=== PATIENT | male | born 1985 | race Two or more races ===

== ENCOUNTER 2017-06-02 15:42 | Inpatient (IN) | payer OTHER ==
[2017-06-02 17:26] VITALS: BMI 22.4
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
[2017-06-02] MEDS ORDERED: MENTHOL/PHENOL 1 EACH UD MM PRN (18:58)
[2017-06-02] MEDS ORDERED: P-EPHED 60MG/TRIPROLIDI 2.5MG TABLET PO PRN (18:58)
[2017-06-02] MEDS ORDERED: MAGNESIUM CITRATE 300 ML BOTTLE PO PRN (18:58)
[2017-06-02] MEDS ORDERED: MAG HYDROX/AL HYDROX/SIMETH 30 ML UNIT-DOSE CUP PO PRN (18:58)
[2017-06-02] MEDS ORDERED: MAGNESIUM HYDROX 2400MG/30ML ORAL SUSPENSION 30 ML CUP PO PRN (18:58)
[2017-06-02] MEDS ORDERED: ACETAMINOPHEN 325 MG TABLET (FP) PO PRN (18:58)
[2017-06-02] MEDS ORDERED: chlordiazePOXIDE HCL 25 MG CAPSULE PO PRN (18:58)
[2017-06-02] MEDS ORDERED: LOPERAMIDE HCL 2 MG CAPSULE PO PRN (18:58)
[2017-06-02] MEDS ORDERED: IBUPROFEN 400 MG TABLET (FP) PO PRN (18:58)
[2017-06-02] MEDS ORDERED: BACLOFEN 10 MG TABLET (FP) PO PRN (19:01)
[2017-06-02] MEDS ORDERED: ONDANSETRON *ODT* 4 MG TABLET SL PRN (19:05)
[2017-06-02] MEDS: RANITIDINE HCL 150 MG TABLET (FP) PO SCH ×2 (19:57→22:27)
[2017-06-02] MEDS: NICOTINE POLACRILEX 4 MG GUM BUC PRN (21:01)
[2017-06-02] MEDS: cloNIDine HCL 0.1 MG TABLET PO PRN (22:26)
[2017-06-02] MEDS: chlordiazePOXIDE HCL 25 MG CAPSULE PO SCH (22:27)
[2017-06-02] MEDS: THIAMINE HCL 100 MG TABLET (FP) PO SCH (22:27)
[2017-06-03 01:48] LABS: URINE APPEARANCE CLEAR; URINE BILIRUBIN NEGATIVE (NEGATIVE); URINE BLOOD NEGATIVE (NEGATIVE); URINE COLOR LTYELLOW; URINE GLUCOSE (UA) NEGATIVE (NEGATIVE); URINE KETONE NEGATIVE (NEGATIVE); URINE NITRITE NEGATIVE (NEGATIVE); URINE PROTEIN NEGATIVE (NEGATIVE); URINE UROBILINOGEN NEGATIVE mg/dL (0.2-1.0)
[2017-06-03] MEDS: chlordiazePOXIDE HCL 25 MG CAPSULE PO SCH ×4 (05:09→22:17)
[2017-06-03] MEDS: guaiFENesin/D-METHORPHAN HB 10 ML UNIT-DOSE CUPS PO PRN (05:10)
--- NOTE | 2017-06-03 09:18 | PN ---
S CIWA - CIWA Score Nausea/Vomitin-No Nausea/No Vomiting Muscle Tremors: 4-Moderate,w/Arms Extend Anxiety: 3 Agitation: 3 Paroxysmal Sweats: 3 Orientation: 0-Oriented Tacttile Disturbances: 0-None Auditory Disturbances: 0-None Visual Disturbances: 0-None Headache: 1-Very Mild CIWA-Ar Total Score: 14 S Progress Note (SOAP) Subjective: agitation anxiety sweats shakes irritable restless Objective: 06/03/17 09:17 Vital Signs Temperature 96.1 F L 06/03/17 06:33 Pulse Rate 83 06/03/17 06:33 Respiratory Rate 18 06/03/17 06:33 Blood Pressure 118/74 06/03/17 06:33 O2 Sat by Pulse Oximetry (%) Laboratory Tests 06/02/17 22:30 Urine Color Ltyellow Urine Appearance Clear Urine pH 6.0 Ur Specific [place] 1.012 Urine Protein Negative Urine Glucose (UA) Negative Urine Ketones Negative Urine Blood Negative Urine Nitrite Negative Urine Bilirubin Negative Urine Urobilinogen Negative labs pending aaox3 ambulating no acute distress Assessment: 06/03/17 09:18 withdrawal sx Plan: continue detox increase fluids f/u pending labs
[2017-06-03 10:02] LABS: MCH 27.7 pg (25.7-33.7); MCHC 32.2 g/dl (32.0-35.9); MEAN CELL VOLUME 85.8 fl (80-96); MEAN PLT VOLUME 10.7 fl (7.5-11.1); PLATELET COUNT 117 K/MM3 (134-434); RDW 14.6 % (11.9-15.9); WHITE BLOOD COUNT 8.9 K/mm3 (4.0-10.0)
[2017-06-03] MEDS: cloNIDine HCL 0.1 MG TABLET PO PRN (10:10)
[2017-06-03] MEDS: PRENATAL VITAMINS W/ FOLIC ACID TABLET (FP) PO SCH (10:10)
[2017-06-03] MEDS: RANITIDINE HCL 150 MG TABLET (FP) PO SCH ×2 (10:10→22:17)
[2017-06-03] MEDS: NICOTINE 21 MG/24 HOURS TOPICAL PATCH TD SCH (10:11)
[2017-06-03 10:48] LABS: URINE LEUK ESTERASE Negative (NEGATIVE)
[2017-06-03 10:51] LABS: ALBUMIN 3.2 g/dl (3.4-5.0); ALK PHOS 93 U/L (45-117); ANION GAP 7 (8-16); BILIRUBIN,TOTAL 0.4 mg/dL (0.2-1.0); CALCIUM 8.7 mg/dL (8.5-10.1); CO2 28 mmol/L (21-32); CREATININE 0.7 mg/dL (0.7-1.3); GLUCOSE,RANDOM 81 mg/dL (74-106); SGOT/AST 14 U/L (15-37); SGPT/ALT 16 U/L (12-78); TOT PROT 6.1 g/dl (6.4-8.2)
[2017-06-03 11:18] LABS: HIV 1 & 2 AB NEGATIVE; HIV 1 AGp24 NEGATIVE
--- NOTE | 2017-06-03 12:49 | EKG ---
Test Reason : Blood Pressure : / mmHG Vent. Rate : 059 BPM Atrial Rate : 059 BPM P-R Int : 140 ms QRS Dur : 084 ms QT Int : 366 ms P-R-T Axes : 036 068 051 degrees QTc Int : 362 ms SINUS BRADYCARDIA PROBABLE EARLY REPOLARIZATION PATTERN. BASELINE ARTIFACT NO PREVIOUS ECGS AVAILABLE REPEAT EKG IF CLINICALLY INDICATED Confirmed by JUANCARLOS RIDLEY MD ([id number]) on 06/03/2017 12:49:41 PM Referred By: Confirmed By:JUANCARLOS RIDLEY MD
--- NOTE | 2017-06-03 18:21 | CONSULT ---
[facility] Psychiatric Consult - Data Date of interview: 06/03/17 Admission source: [facility] Identifying data: First admission to [facility] for this 32 y/o male seeking detox treatment on for alcohol and cocaine dependence.Patient is single,without children,domiciled and employed. Substance Abuse History: Discussed in this session.Confirmed by patient. Smoking history: Current every day smoker. Have you smoked in the past 12 months: Yes. Aproximately how many cigarettes per day: 20. Cigars Per Day: 0. Hx Chewing Tobacco Use: No. Initiated information on smoking cessation: Yes. 'Breaking Loose' booklet given: 06/02/17. - Substance & Tx. History. Hx Alcohol Use: Yes. Hx Substance Use: No. Substance Use Type: Alcohol. Hx Substance Use Treatment: Yes (2016). - Substances Abused. Alcohol. Route: Oral. Frequency: Daily. Amount used: 1 pint cognac. Age of first use: 12. Date of Last Use: 06/01/17. Cocaine. Route: Inhalation. Frequency: Daily. Amount used: $20. Age of first use: 28. Date of Last Use: 05/30/17 Medical History: Patient endorses good general health. Psychiatric History: Discharged from [facility] and referred to [facility] for detoxification treatment.Diagnosed with Paranoid Schizophrenia.Mr Reardon reports that he is followed by the [facility] [facility] team.Maintained on haldol decanoate 150 mg IM monthly (not received for past two months as per patient) + depakote 1500 mg/day + cogentin 1mg po bid (self-report).Patient states that he attempted suicide,at age 25,via showering with HOT water and self -mutilation. Physical/Sexual Abuse/Trauma History: No reported history of abuse. Additional Comment: Drug Screen is negative. Mental Status Exam - Mental Status Exam Alert and Oriented to: Time, Place, Person Cognitive Function: Good Patient Appearance: Well Groomed Mood: Nervous, Anxious Affect: Mood Congruent Patient Behavior: Fatigued, Appropriate, Cooperative Speech Pattern: Clear Voice Loudness: Normal Thought Process: Goal Oriented Thought Disorder: Not Present Hallucinations: Denies Suicidal Ideation: Denies Homicidal Ideation: Denies Insight/Judgement: Poor Sleep: Poorly, Difficulty falling asleep Appetite: Good Muscle strength/Tone: Normal Gait/Station: Normal Psychiatric Findings - Problem List ([place] 1, 2,3) (1) Schizophrenia Current Visit: Yes Status: Chronic Qualifiers: Schizophrenia type: schizophreniform disorder Qualified Code(s): F20.81 - Schizophreniform disorder (2) Alcohol dependence with uncomplicated withdrawal Current Visit: Yes Status: Acute (3) Nicotine dependence Current Visit: Yes Status: Acute Qualifiers: Nicotine product type: cigarettes Substance use status: uncomplicated Qualified Code(s): F17.210 - Nicotine dependence, cigarettes, uncomplicated (4) Substance induced mood disorder Current Visit: Yes Status: Acute - Initial Treatment Plan Initial Treatment Plan: Psychoeducation.Detoxification.Contact will be established with [facility] for verification of dose of haldol decanoate.In the meantime will resume care with haldol 5 mg po hs + cogentin 0.5 mg po hs.Valproate not renewed (VA level = 3.7 drawn on 06/03/17).Side effects/benefits of haldol and cogentin are discussed with the patient.Made aware of potential for neuroleptic malignant syndrome,dystonias,dyskinesias, akathisia,cardiovascular adverse events,anticholinergic phenomena which include blurred vision,urinary hesitancy and constipation.Patient endorses history of good response/tolerability.He gave his informed consent (verbally) for the implementation of this careplan.Observation.
[2017-06-03] MEDS: THIAMINE HCL 100 MG TABLET (FP) PO SCH (22:17)
[2017-06-04] MEDS: guaiFENesin/D-METHORPHAN HB 10 ML UNIT-DOSE CUPS PO PRN ×2 (01:52→22:20)
[2017-06-04] MEDS: NICOTINE POLACRILEX 4 MG GUM BUC PRN ×2 (02:04→07:23)
[2017-06-04] MEDS: chlordiazePOXIDE HCL 25 MG CAPSULE PO SCH ×3 (05:36→18:04)
--- NOTE | 2017-06-04 09:10 | PN ---
Psychiatric Progress Note Vital Signs: Vital Signs Period Temp Pulse Resp BP Sys/[place] Pulse Ox Last 24 Hr 96.8 F-97.8 F 63-88 18-20 117-138/65-90 Date of Session: 06/04/17 Chief Complaint:: My medications HPI: Patient reports taking prior to admission: Haldol 5mg po bid. Depakote 500mg po tid. Cogentin 1mg po bid. Patient asking to restart his medications JAVI , patient afraid psychiotic. exacerbations adn following psychiatric hospitaliztion. Current Valproic blood level is 3,7 Current Medications: Active Medications Generic Name Dose Route Start Last Admin Trade Name Freq PRN Reason Stop Dose Admin Acetaminophen 650 mg 06/02/17 18:58 Tylenol - PO Q4H PRN FEVER OR PAIN Al Hydroxide/Mg Hydroxide 30 ml 06/02/17 18:58 Mylanta Oral Suspension - PO Q6H PRN DYSPEPSIA Baclofen 10 mg 06/02/17 19:01 Lioresal - PO Q8H PRN BACK PAIN Chlordiazepoxide HCl 25 mg 06/03/17 23:00 06/04/17 05:36 Librium - PO 06/04/17 17:01 25 mg [id number] REJI Administration Chlordiazepoxide HCl 15 mg 06/04/17 23:00 Librium - PO 06/05/17 17:01 [id number] REJI Chlordiazepoxide HCl 25 mg 06/02/17 18:58 06/02/17 19:57 Librium - PO 06/05/17 18:57 25 mg Q4H PRN Administration WITHDRAWAL(CONT SUBST) Chlordiazepoxide HCl 10 mg 06/05/17 23:00 Librium - PO 06/06/17 17:01 [id number] REJI Clonidine 0.1 mg 06/02/17 19:01 06/03/17 10:10 Catapres - PO 0.1 mg Q6H PRN Administration HYPERTENSION Eucalyptus/Menthol/Phenol/Sorbitol 1 each 06/02/17 18:58 06/03/17 05:11 Cepastat Lozenge - MM 1 each Q4H PRN Administration SORE THROAT Guaifenesin 10 ml 06/02/17 18:58 06/04/17 01:52 Robitussin Dm - PO 10 ml Q6H PRN Administration COUGH Loperamide HCl 4 mg 06/02/17 18:58 Imodium - PO Q6H PRN DIARRHEA Magnesium Citrate 300 ml 06/02/17 18:58 Citroma - PO Q48H PRN CONSTIPATION Magnesium Hydroxide 30 ml 06/02/17 18:58 Milk Of Magnesia - PO DAILY PRN CONSTIPATION Nicotine 21 mg 06/03/17 10:00 06/03/17 10:11 Nicoderm Patch - TD 21 mg DAILY REJI Administration Nicotine Polacrilex 4 mg 06/02/17 18:58 06/04/17 07:23 Nicorette Gum - BUC 4 mg Q2H PRN Administration NICOTINE REPLACEMENT RX Ondansetron HCl 4 mg 06/02/17 19:05 06/03/17 10:10 Zofran Odt - SL 4 mg Q8H PRN Administration NAUSEA AND/OR VOMITING Multivit/Folic Acid/Iron 1 tab 06/03/17 10:00 06/03/17 10:10 Vitamins ([facility]) - PO 1 tab DAILY REJI Administration Pseudoephedrine/Triprolidine 1 combo 06/02/17 18:58 Actifed - PO TID PRN NASAL CONGESTION Ranitidine HCl 150 mg 06/02/17 19:15 06/03/17 22:17 Zantac - PO 150 mg BID REJI Administration Thiamine HCl 100 mg 06/02/17 22:00 06/03/17 22:17 Vitamin B1 - PO 100 mg HS REJI Administration Medication(s) Change(s): Haldol 5mg po bid. Depakote 500mg po bid. Cogentin 1mg po bid Mental Status Exam - Mental Status Exam Alert and Oriented to: Person Cognitive Function: Fair Patient Appearance: Well Groomed Mood: Anxious Affect: Mood Congruent Patient Behavior: Cooperative Speech Pattern: Appropriate Voice Loudness: Normal Thought Process: Goal Oriented Thought Disorder: Being Controlled Hallucinations: Denies Suicidal Ideation: Denies Homicidal Ideation: Denies Insight/Judgement: Fair Sleep: Difficulty falling asleep Appetite: Weight loss Muscle strength/Tone: Normal Gait/Station: Normal Additional Comments: Haldol 5mg po bid. Depakote 500mg po tid. Cogentin 1mg po bid Psychiatric Treatment Plan - Problem List (1) Alcohol dependence with uncomplicated withdrawal Current Visit: Yes (2) Nicotine dependence Current Visit: Yes Qualifiers: Nicotine product type: cigarettes Substance use status: uncomplicated Qualified Code(s): F17.210 - Nicotine dependence, cigarettes, uncomplicated (3) Substance induced mood disorder Current Visit: Yes (4) Weight loss Current Visit: Yes (5) Schizophrenia Current Visit: Yes Qualifiers: Schizophrenia type: schizophreniform disorder Qualified Code(s): F20.81 - Schizophreniform disorder Initial treatment plan: Haldol 5mg po bid. Depakote 500mg po tid. Cogentin 1mg po bid
--- NOTE | 2017-06-04 09:23 | PN ---
S CIWA - CIWA Score Nausea/Vomitin Muscle Tremors: 3 Anxiety: 3 Agitation: 3 Paroxysmal Sweats: 3 Orientation: 0-Oriented Tacttile Disturbances: 1-Very Mild Itch/Numbness Auditory Disturbances: 0-None Visual Disturbances: 0-None Headache: 1-Very Mild CIWA-Ar Total Score: 17 S Progress Note (SOAP) Subjective: nausea, sweats, interrupted sleep, anxiety, tremors Objective: 06/04/17 09:22 Vital Signs - 24 hr 06/03/17 06/03/17 06/03/17 09:57 13:58 18:38 Temperature 97.8 F 97.3 F L 97.3 F L Pulse Rate 78 78 63 Respiratory 18 18 20 Rate Blood Pressure 126/70 138/77 135/66 06/03/17 06/03/17 06/04/17 18:52 22:00 00:30 Temperature 97.7 F 97.7 F Pulse Rate 88 86 Respiratory 18 18 18 Rate Blood Pressure 138/76 121/65 06/04/17 06/04/17 03:30 06:30 Temperature 96.8 F L Pulse Rate 72 Respiratory 18 18 Rate Blood Pressure 117/90 Laboratory Tests 06/02/17 06/03/17 06/03/17 22:30 07:00 07:00 WBC 8.9 RBC 4.70 Hgb 13.0 Hct 40.3 MCV 85.8 MCH 27.7 MCHC 32.2 RDW 14.6 Plt Count 117 L MPV 10.7 Sodium Potassium Chloride Carbon Dioxide Anion Gap BUN Creatinine Creat Clearance w eGFR Random Glucose Calcium Total Bilirubin AST ALT Alkaline Phosphatase Total Protein Albumin Urine Color Ltyellow Urine Appearance Clear Urine pH 6.0 Ur Specific [place] 1.012 Urine Protein Negative Urine Glucose (UA) Negative Urine Ketones Negative Urine Blood Negative Urine Nitrite Negative Urine Bilirubin Negative Urine Urobilinogen Negative Ur Leukocyte Esterase Negative Valproic Acid RPR Titer HIV 1&2 Antibody Screen Negative HIV P24 Antigen Negative 06/03/17 06/03/17 06/03/17 07:00 07:00 07:00 WBC RBC Hgb Hct MCV MCH MCHC RDW Plt Count MPV Sodium 142 Potassium 3.9 Chloride 107 Carbon Dioxide 28 Anion Gap 7 L BUN 14 Creatinine 0.7 Creat Clearance w eGFR > 60 Random Glucose 81 Calcium 8.7 Total Bilirubin 0.4 AST 14 L ALT 16 Alkaline Phosphatase 93 Total Protein 6.1 L Albumin 3.2 L Urine Color Urine Appearance Urine pH Ur Specific [place] Urine Protein Urine Glucose (UA) Urine Ketones Urine Blood Urine Nitrite Urine Bilirubin Urine Urobilinogen Ur Leukocyte Esterase Valproic Acid 3.738 L RPR Titer Nonreactive HIV 1&2 Antibody Screen HIV P24 Antigen low albumin Assessment: 06/04/17 09:23 withdrawal sx, low alb /mualnutirtion 2/2 substance use, cont detox fluids
[2017-06-04] MEDS: PRENATAL VITAMINS W/ FOLIC ACID TABLET (FP) PO SCH (10:06)
[2017-06-04] MEDS: RANITIDINE HCL 150 MG TABLET (FP) PO SCH ×2 (10:06→22:19)
[2017-06-04] MEDS: BENZTROPINE MESYLATE 1 MG TABLET (FP) PO SCH ×2 (10:08→22:19)
[2017-06-04] MEDS: HALOPERIDOL 5 MG TABLET (FP) PO SCH ×2 (10:08→22:19)
[2017-06-04] MEDS: NICOTINE 21 MG/24 HOURS TOPICAL PATCH TD SCH (10:08)
[2017-06-04] MEDS: DIVALPROEX SODIUM 500 MG TABLET E.C. PO SCH ×2 (10:08→22:19)
--- NOTE | 2017-06-04 13:59 | PN ---
[facility] Progress Note Note: Psychiatry Attending's note (follow up) : I contacted [facility] team at [phone]. Medications as follows : haldol decanoate 150 mg IM q 4 weeks. Last received on March . Also on haldol 5 mg po bid + depakote 500 mg po tid. Hospitalized in April - May 2017. Injection of haldol decanoate during psychiatric hospitalization : no information. Patient is a questionable historian.Will continue oral formulation.
[2017-06-04] MEDS: chlordiazePOXIDE 5 MG CAPSULE PO SCH (22:19)
[2017-06-04] MEDS: THIAMINE HCL 100 MG TABLET (FP) PO SCH (22:19)
[2017-06-05] MEDS: chlordiazePOXIDE 5 MG CAPSULE PO SCH ×3 (06:47→17:34)
[2017-06-05] MEDS: PRENATAL VITAMINS W/ FOLIC ACID TABLET (FP) PO SCH (10:02)
[2017-06-05] MEDS: DIVALPROEX SODIUM 500 MG TABLET E.C. PO SCH ×2 (10:02→22:11)
[2017-06-05] MEDS: RANITIDINE HCL 150 MG TABLET (FP) PO SCH ×2 (10:02→22:11)
[2017-06-05] MEDS: HALOPERIDOL 5 MG TABLET (FP) PO SCH ×2 (10:02→22:11)
[2017-06-05] MEDS: BENZTROPINE MESYLATE 1 MG TABLET (FP) PO SCH ×2 (10:02→22:11)
[2017-06-05] MEDS: NICOTINE 21 MG/24 HOURS TOPICAL PATCH TD SCH (10:03)
[2017-06-05] MEDS: NICOTINE POLACRILEX 4 MG GUM BUC PRN (10:36)
[2017-06-05] MEDS ORDERED: SIMETHICONE 80 MG TAB.CHEW (FP) PO PRN (12:34)
--- NOTE | 2017-06-05 12:34 | PN ---
[facility] Progress Note (SOAP) Subjective: restless stomach ache with gas Objective: 06/05/17 12:33 Vital Signs Temperature 96.8 F L 06/05/17 09:54 Pulse Rate 64 06/05/17 09:54 Respiratory Rate 18 06/05/17 09:54 Blood Pressure 125/70 06/05/17 09:54 O2 Sat by Pulse Oximetry (%) aaox3 ambulating no acute distress Assessment: 06/05/17 12:33 withdrawl sx Plan: continue detox increase fluids mom or [place] prn gas x
[2017-06-05] MEDS: guaiFENesin/D-METHORPHAN HB 10 ML UNIT-DOSE CUPS PO PRN (13:13)
[2017-06-05] MEDS: THIAMINE HCL 100 MG TABLET (FP) PO SCH (22:11)
[2017-06-05] MEDS: chlordiazePOXIDE HCL 10 MG CAPSULE PO SCH (22:12)
[2017-06-06] MEDS: chlordiazePOXIDE HCL 10 MG CAPSULE PO SCH ×3 (05:17→17:36)
--- NOTE | 2017-06-06 08:36 | DS ---
[facility] Detox Discharge Summary Admission Date: 06/02/17 Discharge Date: 06/06/17 - History Present History: Alcohol Dependence - Physical Exam Results Vital Signs: Vital Signs Temperature 96.6 F L 06/06/17 06:20 Pulse Rate 62 06/06/17 06:20 Respiratory Rate 16 06/06/17 06:20 Blood Pressure 126/60 06/06/17 06:20 O2 Sat by Pulse Oximetry (%) - Treatment Hospital Course: Detox Protocol Followed, Detoxed Safely, Responded well, Discharged Condition Good, Rehab Referral Accepted - Medication Discharge Medications: Ambulatory Orders Benztropine Mesylate [Cogentin -] 1 mg PO BID 06/02/17 Divalproex [Depakote -] 500 mg PO BID 06/02/17 Haloperidol [Haldol -] 5 mg PO BID 06/02/17 Benztropine Mesylate [Cogentin -] 0.5 mg PO BID #60 tablet 06/05/17 Divalproex [Depakote -] 500 mg PO BID #60 tablet.ec 06/05/17 Haloperidol [Haldol -] 5 mg PO BID #60 tablet 06/05/17 - Diagnosis (1) Alcohol dependence with uncomplicated withdrawal Current Visit: Yes Status: Chronic (2) Nicotine dependence Current Visit: Yes Status: Chronic Qualifiers: Nicotine product type: cigarettes Substance use status: uncomplicated Qualified Code(s): F17.210 - Nicotine dependence, cigarettes, uncomplicated (3) Weight loss Current Visit: Yes Status: Acute (4) GERD (gastroesophageal reflux disease) Current Visit: Yes Status: Chronic Qualifiers: Esophagitis presence: without esophagitis Qualified Code(s): K21.9 - Gastro -esophageal reflux disease without esophagitis (5) Schizophrenia Current Visit: Yes Status: Chronic Qualifiers: Schizophrenia type: schizophreniform disorder Qualified Code(s): F20.81 - Schizophreniform disorder - AMA Did Patient Leave Against Medical Advice: No
[2017-06-06] MEDS: DIVALPROEX SODIUM 500 MG TABLET E.C. PO SCH (10:29)
[2017-06-06] MEDS: HALOPERIDOL 5 MG TABLET (FP) PO SCH (10:29)
[2017-06-06] MEDS: PRENATAL VITAMINS W/ FOLIC ACID TABLET (FP) PO SCH (10:29)
[2017-06-06] MEDS: BENZTROPINE MESYLATE 1 MG TABLET (FP) PO SCH (10:29)
[2017-06-06] MEDS: RANITIDINE HCL 150 MG TABLET (FP) PO SCH (10:29)
[2017-06-06] MEDS: NICOTINE 21 MG/24 HOURS TOPICAL PATCH TD SCH (10:32)
[2017-06-06 17:57] VITALS: BP 120/70; PULSE 87; TEMP 98.1
== END 2017-06-06 17:55 | disposition other institution (70) | DRG 775 ==
LOC: YASAS 15:42 → Y6N 19:27
PROVIDERS: ADMIT Internal Medicine; ATTEND Internal Medicine
PROC: HZ2ZZZZ Detoxification Services for Substance Abuse Treatment (ICD-10-PCS; principal; 2017-06-02)
DX: F10.230 Alcohol dependence with withdrawal, uncomplicated (principal); F17.210 Nicotine dependence, cigarettes, uncomplicated; F19.24 Other psychoactive substance dependence with psychoactive substance-induced mood disorder; F20.81 Schizophreniform disorder; K21.9 Gastro-esophageal reflux disease without esophagitis
CPT/HCPCS: 36415; 80053; 80164; 81003; 85027; 86593; 87389; 93005; 93010

== ENCOUNTER 2017-06-06 18:12 | Inpatient (IN) | payer OTHER ==
--- NOTE | 2017-06-06 20:54 | HP ---
[facility] Rehab Assess/Revision - Admission History Admitted to Rehab from: [facility] Date of Admission to Rehab: 06/06/17 - Findings Detox History & Physical reviewed: Yes Concur with findings: Yes Comments/Additional Findings: transferred from detox to rehab admission as per protocol
[2017-06-06] MEDS ORDERED: IBUPROFEN 400 MG TABLET (FP) PO PRN (20:55)
[2017-06-06] MEDS ORDERED: LOPERAMIDE HCL 2 MG CAPSULE PO PRN (20:55)
[2017-06-06] MEDS ORDERED: MAGNESIUM HYDROX 2400MG/30ML ORAL SUSPENSION 30 ML CUP PO PRN (20:55)
[2017-06-06] MEDS ORDERED: P-EPHED 60MG/TRIPROLIDI 2.5MG TABLET PO PRN (20:55)
[2017-06-06] MEDS ORDERED: MAG HYDROX/AL HYDROX/SIMETH 30 ML UNIT-DOSE CUP PO PRN (20:55)
[2017-06-06] MEDS ORDERED: MENTHOL/PHENOL 1 EACH UD MM PRN (20:55)
[2017-06-06] MEDS ORDERED: NICOTINE 14 MG/24 HOURS TOPICAL PATCH TD PRN (20:55)
[2017-06-06] MEDS ORDERED: MAGNESIUM CITRATE 300 ML BOTTLE PO PRN (20:55)
--- NOTE | 2017-06-06 20:55 | HP ---
Inpatient Rehab Admission - Initial Determination Are CD services needed?: Yes Free of communicable disease: Yes Not in need of hospitalization: Yes - Rehab Admission Criteria Previous failed treatment: Yes Poor recovery environment: Yes Comorbidities: Yes Lacks judgement: No Patient is meeting Inpatient Rehab admission criteria:: Yes
[2017-06-06] MEDS: DIVALPROEX SODIUM 500 MG TABLET E.C. PO SCH (21:53)
[2017-06-06] MEDS: HALOPERIDOL 5 MG TABLET (FP) PO SCH (21:53)
[2017-06-06] MEDS: RANITIDINE HCL 150 MG TABLET (FP) PO SCH ×2 (21:53→21:56)
[2017-06-06] MEDS: THIAMINE HCL 100 MG TABLET (FP) PO SCH (21:54)
[2017-06-06] MEDS: BENZTROPINE MESYLATE 0.5 MG TABLET (FP) PO SCH (23:05)
[2017-06-07] MEDS: PRENATAL VITAMINS W/ FOLIC ACID TABLET (FP) PO SCH (09:36)
[2017-06-07] MEDS: RANITIDINE HCL 150 MG TABLET (FP) PO SCH ×2 (09:36→21:20)
[2017-06-07] MEDS: DIVALPROEX SODIUM 500 MG TABLET E.C. PO SCH ×2 (09:36→21:20)
[2017-06-07] MEDS: BENZTROPINE MESYLATE 0.5 MG TABLET (FP) PO SCH ×2 (09:36→21:20)
[2017-06-07] MEDS: HALOPERIDOL 5 MG TABLET (FP) PO SCH ×2 (09:36→21:20)
[2017-06-07] MEDS: THIAMINE HCL 100 MG TABLET (FP) PO SCH (21:20)
[2017-06-07] MEDS: hydrOXYzine PAMOATE 50 MG CAPSULE (FP) PO PRN (23:52)
[2017-06-08] MEDS: HALOPERIDOL 5 MG TABLET (FP) PO SCH (10:12)
[2017-06-08] MEDS: DIVALPROEX SODIUM 500 MG TABLET E.C. PO SCH ×2 (10:12→21:15)
[2017-06-08] MEDS: RANITIDINE HCL 150 MG TABLET (FP) PO SCH ×2 (10:12→21:15)
[2017-06-08] MEDS: PRENATAL VITAMINS W/ FOLIC ACID TABLET (FP) PO SCH (10:12)
[2017-06-08] MEDS: BENZTROPINE MESYLATE 0.5 MG TABLET (FP) PO SCH (10:12)
--- NOTE | 2017-06-08 10:48 | HP ---
Psychiatrist Admission - Data Date of interview: 06/08/17 Admission source: 6N Identifying data: This is the first [facility] admission for this 32 years old single male, unemployed on SSI/food stamp, domiciled living with family(mother, sister and brother) Medical History: Significant for history of seizure disorder as an . Smokes cigarettes 1ppd Psychiatric History: Reports that his first psychiatric contact was at age 18 when he was admitted to [facility] and diagnosed with Schizophrenia. Reports multiple subsequent admissions to [facility] and most recently 2 weeks ago to [facility]. He was discharged on Haldol 5 mg po BID, Cogentin 1 mg po BID and Depakote 500 mg po TID. Reports that his OPD care is provided by [facility]. He is also on Haldol Decanoate 150 mg IM administered last on 04/05/17. Reports history of suicidal attempt by showering with hot water and self-mutilation. Patient was seen by Dr Bee on 06/03/17 while in detox and was prescribed Haldol 5 mg/hs and Cogentin 1 mg/hs. At present, denies experiencing psychotic, manic or depressive symptoms, S/H ideations Physical/Sexual Abuse/Trauma History: Denies history of cerbal, physical or sexual abuse as well as DV relationship Additional Comment: Reports history of 7-8 previous arrests on charges of possession of narcotic, gun. Denies being on parole/probation at present Vital Signs: Vital Signs - 24 hr 06/08/17 06/08/17 06/08/17 00:30 03:30 06:49 Temperature 97.1 F L Pulse Rate 73 Respiratory 18 16 18 Rate Blood Pressure 116/72 Allergies/Adverse Reactions: Allergies Allergy/AdvReac Type Severity Reaction Status Date / Time No Known Allergies Allergy Verified 06/06/17 19:25 Date of last physical exam: 06/02/17 Concur with the findings of this exam: Yes - Substance Abuse/Tx History Hx Alcohol Use: Yes Hx Substance Use: Yes Substance Use Type: Alcohol (Started drinking alcohol at age 12, consumes one pint daily. Last drank on 06/01/17), Cocaine (Started using cocaine at age 28, consumes $20 worth daily. Last used on 05/30/17) Hx Substance Use Treatment: Yes (Multiple previous inpt detox & rehab admissions ) Mental Status Exam - Mental Status Exam Alert and Oriented to: Time, Place, Person Cognitive Function: Fair Patient Appearance: Well Groomed Mood: Hopeful, Euthymic Patient Behavior: Cooperative Speech Pattern: Clear Voice Loudness: Normal Thought Process: Intact, Goal Oriented Thought Disorder: Not Present Hallucinations: Denies Suicidal Ideation: Denies Homicidal Ideation: Denies Insight/Judgement: Fair Sleep: Well Appetite: Good Muscle strength/Tone: Normal Gait/Station: Normal Psychiatric Findings - Problem List ([place] 1, 2,3) (1) Alcohol dependence with uncomplicated withdrawal Current Visit: No Status: Chronic (2) Cocaine dependence Current Visit: Yes Status: Acute (3) Nicotine dependence Current Visit: No Status: Chronic Qualifiers: Nicotine product type: cigarettes Substance use status: uncomplicated Qualified Code(s): F17.210 - Nicotine dependence, cigarettes, uncomplicated (4) Schizophrenia Current Visit: No Status: Chronic Qualifiers: Schizophrenia type: schizophreniform disorder Qualified Code(s): F20.81 - Schizophreniform disorder - Initial Treatment Plan Initial Treatment Plan: 1) Start Haldol 5 mg po BID, Depakote 500 mg po BID, Cogentin 1 mg po BID and Haldol Decanoate 150 mg IM on 06/10/17. 2) Monitor progress
[2017-06-08] MEDS ORDERED: HALOPERIDOL 5 MG TABLET (FP) PO PRN ×2 (12:18→12:22)
[2017-06-08] MEDS: BENZTROPINE MESYLATE 1 MG TABLET (FP) PO SCH (21:15)
[2017-06-08] MEDS: THIAMINE HCL 100 MG TABLET (FP) PO SCH (21:15)
[2017-06-08] MEDS: hydrOXYzine PAMOATE 50 MG CAPSULE (FP) PO PRN (21:18)
[2017-06-08] MEDS: guaiFENesin/D-METHORPHAN HB 10 ML UNIT-DOSE CUPS PO PRN (23:07)
[2017-06-09] MEDS: BENZTROPINE MESYLATE 1 MG TABLET (FP) PO SCH ×2 (09:39→21:12)
[2017-06-09] MEDS: RANITIDINE HCL 150 MG TABLET (FP) PO SCH ×2 (09:39→21:12)
[2017-06-09] MEDS: DIVALPROEX SODIUM 500 MG TABLET E.C. PO SCH ×2 (09:39→21:12)
[2017-06-09] MEDS: PRENATAL VITAMINS W/ FOLIC ACID TABLET (FP) PO SCH (09:39)
[2017-06-09] MEDS ORDERED: HALOPERIDOL DECANOATE 100 MG/ML IM ONE (10:00)
[2017-06-09] MEDS: NICOTINE POLACRILEX 2 MG GUM BUC PRN (10:08)
[2017-06-09] MEDS: ACETAMINOPHEN 325 MG TABLET (FP) PO PRN (14:22)
[2017-06-09] MEDS: THIAMINE HCL 100 MG TABLET (FP) PO SCH (21:12)
[2017-06-10] MEDS: hydrOXYzine PAMOATE 50 MG CAPSULE (FP) PO PRN ×2 (01:20→23:53)
[2017-06-10] MEDS: guaiFENesin/D-METHORPHAN HB 10 ML UNIT-DOSE CUPS PO PRN ×2 (01:20→23:52)
[2017-06-10] MEDS: DIVALPROEX SODIUM 500 MG TABLET E.C. PO SCH ×2 (09:49→21:02)
[2017-06-10] MEDS: PRENATAL VITAMINS W/ FOLIC ACID TABLET (FP) PO SCH (09:49)
[2017-06-10] MEDS: RANITIDINE HCL 150 MG TABLET (FP) PO SCH ×2 (09:49→21:02)
[2017-06-10] MEDS: BENZTROPINE MESYLATE 1 MG TABLET (FP) PO SCH ×2 (09:49→21:02)
[2017-06-10] MEDS: ACETAMINOPHEN 325 MG TABLET (FP) PO PRN ×2 (09:50→23:52)
[2017-06-10] MEDS: THIAMINE HCL 100 MG TABLET (FP) PO SCH (21:02)
[2017-06-11] MEDS: PRENATAL VITAMINS W/ FOLIC ACID TABLET (FP) PO SCH (09:50)
[2017-06-11] MEDS: RANITIDINE HCL 150 MG TABLET (FP) PO SCH ×2 (09:51→21:17)
[2017-06-11] MEDS: BENZTROPINE MESYLATE 1 MG TABLET (FP) PO SCH ×2 (09:51→21:17)
[2017-06-11] MEDS: DIVALPROEX SODIUM 500 MG TABLET E.C. PO SCH ×2 (09:51→21:17)
[2017-06-11] MEDS: NICOTINE POLACRILEX 2 MG GUM BUC PRN (10:08)
[2017-06-11] MEDS: ACETAMINOPHEN 325 MG TABLET (FP) PO PRN (15:46)
[2017-06-11] MEDS: guaiFENesin/D-METHORPHAN HB 10 ML UNIT-DOSE CUPS PO PRN (15:46)
[2017-06-11] MEDS: THIAMINE HCL 100 MG TABLET (FP) PO SCH (21:17)
[2017-06-11] MEDS: hydrOXYzine PAMOATE 50 MG CAPSULE (FP) PO PRN (23:01)
[2017-06-12] MEDS: PRENATAL VITAMINS W/ FOLIC ACID TABLET (FP) PO SCH (09:36)
[2017-06-12] MEDS: BENZTROPINE MESYLATE 1 MG TABLET (FP) PO SCH ×2 (09:36→21:27)
[2017-06-12] MEDS: RANITIDINE HCL 150 MG TABLET (FP) PO SCH ×2 (09:37→21:27)
[2017-06-12] MEDS: hydrOXYzine PAMOATE 50 MG CAPSULE (FP) PO PRN ×2 (09:37→21:47)
[2017-06-12] MEDS: DIVALPROEX SODIUM 500 MG TABLET E.C. PO SCH ×2 (09:37→21:27)
[2017-06-12] MEDS: NICOTINE POLACRILEX 2 MG GUM BUC PRN (09:38)
[2017-06-12] MEDS: THIAMINE HCL 100 MG TABLET (FP) PO SCH (21:27)
[2017-06-13] MEDS: DIVALPROEX SODIUM 500 MG TABLET E.C. PO SCH ×2 (09:52→21:52)
[2017-06-13] MEDS: RANITIDINE HCL 150 MG TABLET (FP) PO SCH ×2 (09:52→21:52)
[2017-06-13] MEDS: BENZTROPINE MESYLATE 1 MG TABLET (FP) PO SCH ×2 (09:52→21:52)
[2017-06-13] MEDS: PRENATAL VITAMINS W/ FOLIC ACID TABLET (FP) PO SCH (09:52)
[2017-06-13] MEDS: NICOTINE POLACRILEX 2 MG GUM BUC PRN (09:54)
[2017-06-13] MEDS: THIAMINE HCL 100 MG TABLET (FP) PO SCH (21:52)
[2017-06-13] MEDS: hydrOXYzine PAMOATE 50 MG CAPSULE (FP) PO PRN (21:53)
[2017-06-14] MEDS: PRENATAL VITAMINS W/ FOLIC ACID TABLET (FP) PO SCH (09:27)
[2017-06-14] MEDS: DIVALPROEX SODIUM 500 MG TABLET E.C. PO SCH ×2 (09:27→21:41)
[2017-06-14] MEDS: BENZTROPINE MESYLATE 1 MG TABLET (FP) PO SCH ×2 (09:27→21:40)
[2017-06-14] MEDS: RANITIDINE HCL 150 MG TABLET (FP) PO SCH ×2 (09:27→21:41)
[2017-06-14] MEDS: NICOTINE POLACRILEX 2 MG GUM BUC PRN ×2 (09:29→21:43)
[2017-06-14] MEDS: THIAMINE HCL 100 MG TABLET (FP) PO SCH (21:41)
[2017-06-15] MEDS: BENZTROPINE MESYLATE 1 MG TABLET (FP) PO SCH ×2 (09:44→22:15)
[2017-06-15] MEDS: RANITIDINE HCL 150 MG TABLET (FP) PO SCH ×2 (09:44→22:15)
[2017-06-15] MEDS: DIVALPROEX SODIUM 500 MG TABLET E.C. PO SCH ×2 (09:44→22:15)
[2017-06-15] MEDS: PRENATAL VITAMINS W/ FOLIC ACID TABLET (FP) PO SCH (09:44)
[2017-06-15] MEDS: THIAMINE HCL 100 MG TABLET (FP) PO SCH (22:15)
[2017-06-15] MEDS: hydrOXYzine PAMOATE 50 MG CAPSULE (FP) PO PRN (22:16)
[2017-06-16] MEDS: DIVALPROEX SODIUM 500 MG TABLET E.C. PO SCH ×2 (09:39→22:14)
[2017-06-16] MEDS: PRENATAL VITAMINS W/ FOLIC ACID TABLET (FP) PO SCH (09:39)
[2017-06-16] MEDS: BENZTROPINE MESYLATE 1 MG TABLET (FP) PO SCH ×2 (09:39→22:14)
[2017-06-16] MEDS: RANITIDINE HCL 150 MG TABLET (FP) PO SCH ×2 (09:39→22:14)
[2017-06-16] MEDS: NICOTINE POLACRILEX 2 MG GUM BUC PRN (09:41)
[2017-06-16] MEDS: THIAMINE HCL 100 MG TABLET (FP) PO SCH (22:14)
[2017-06-16] MEDS: hydrOXYzine PAMOATE 50 MG CAPSULE (FP) PO PRN (22:14)
[2017-06-17] MEDS: PRENATAL VITAMINS W/ FOLIC ACID TABLET (FP) PO SCH (09:47)
[2017-06-17] MEDS: RANITIDINE HCL 150 MG TABLET (FP) PO SCH ×2 (09:47→21:17)
[2017-06-17] MEDS: DIVALPROEX SODIUM 500 MG TABLET E.C. PO SCH ×2 (09:47→21:17)
[2017-06-17] MEDS: BENZTROPINE MESYLATE 1 MG TABLET (FP) PO SCH ×2 (09:47→21:18)
[2017-06-17] MEDS: THIAMINE HCL 100 MG TABLET (FP) PO SCH (21:17)
[2017-06-17] MEDS: hydrOXYzine PAMOATE 50 MG CAPSULE (FP) PO PRN (21:18)
[2017-06-18] MEDS: DIVALPROEX SODIUM 500 MG TABLET E.C. PO SCH ×2 (09:56→21:52)
[2017-06-18] MEDS: PRENATAL VITAMINS W/ FOLIC ACID TABLET (FP) PO SCH (09:56)
[2017-06-18] MEDS: RANITIDINE HCL 150 MG TABLET (FP) PO SCH ×2 (09:56→21:52)
[2017-06-18] MEDS: BENZTROPINE MESYLATE 1 MG TABLET (FP) PO SCH ×2 (09:56→21:52)
[2017-06-18] MEDS: THIAMINE HCL 100 MG TABLET (FP) PO SCH (21:52)
[2017-06-18] MEDS: hydrOXYzine PAMOATE 50 MG CAPSULE (FP) PO PRN (21:52)
[2017-06-19] MEDS: DIVALPROEX SODIUM 500 MG TABLET E.C. PO SCH ×2 (09:49→22:35)
[2017-06-19] MEDS: RANITIDINE HCL 150 MG TABLET (FP) PO SCH ×2 (09:49→22:35)
[2017-06-19] MEDS: BENZTROPINE MESYLATE 1 MG TABLET (FP) PO SCH ×2 (09:49→22:35)
[2017-06-19] MEDS: PRENATAL VITAMINS W/ FOLIC ACID TABLET (FP) PO SCH (09:49)
--- NOTE | 2017-06-19 13:32 | PN ---
Psychiatric Progress Note Vital Signs: Vital Signs Period Temp Pulse Resp BP Sys/Quezada Pulse Ox Last 24 Hr 97.6 F 76 18-18 116/65 Date of Session: 06/19/17 Chief Complaint:: Discharge Note HPI: Patient addressing Alcohol and Cocaine Dependence comorbid with Nicotine Dependence and Schizophrenia Current Medications: Active Medications Generic Name Dose Route Start Last Admin Trade Name Freq PRN Reason Stop Dose Admin Acetaminophen 650 mg 06/06/17 20:55 06/11/17 15:46 Tylenol - PO 650 mg Q4H PRN Administration FEVER OR PAIN Al Hydroxide/Mg Hydroxide 30 ml 06/06/17 20:55 06/06/17 21:55 Mylanta Oral Suspension - PO 30 ml Q6H PRN Administration DYSPEPSIA Benztropine Mesylate 1 mg 06/08/17 22:00 06/19/17 09:49 Cogentin - PO 1 mg BID REJI Administration Divalproex Sodium 500 mg 06/06/17 22:00 06/19/17 09:49 Depakote - PO 500 mg BID REJI Administration Eucalyptus/Menthol/Phenol/Sorbitol 1 each 06/06/17 20:55 Cepastat Lozenge - MM Q4H PRN SORE THROAT Guaifenesin 10 ml 06/06/17 20:55 06/11/17 15:46 Robitussin Dm - PO 10 ml Q6H PRN Administration COUGH Haloperidol 5 mg 06/08/17 12:22 Haldol - PO BID PRN AGITATION Hydroxyzine Pamoate 50 mg 06/07/17 23:39 06/18/17 21:52 Vistaril - PO 50 mg Q6H PRN Administration FOR ITCHING Loperamide HCl 4 mg 06/06/17 20:55 Imodium - PO Q6H PRN DIARRHEA Magnesium Citrate 300 ml 06/06/17 20:55 Citroma - PO Q48H PRN CONSTIPATION Magnesium Hydroxide 30 ml 06/06/17 20:55 06/06/17 23:06 Milk Of Magnesia - PO 30 ml DAILY PRN Administration CONSTIPATION Nicotine 14 mg 06/06/17 20:55 Nicoderm Patch - TD DAILY PRN WITHDRAWAL(CONT SUBST) Nicotine Polacrilex 2 mg 06/06/17 20:55 06/16/17 09:41 Nicorette Gum - BUC 2 mg Q2H PRN Administration NICOTINE REPLACEMENT RX Multivit/Folic Acid/Iron 1 tab 06/07/17 10:00 06/19/17 09:49 Vitamins (Sjr) - PO 1 tab DAILY REJI Administration Pseudoephedrine/Triprolidine 1 combo 06/06/17 20:55 Actifed - PO TID PRN NASAL CONGESTION Ranitidine HCl 150 mg 06/06/17 21:00 06/19/17 09:49 Zantac - PO 150 mg BID REJI Administration Thiamine HCl 100 mg 06/06/17 22:00 06/18/17 21:52 Vitamin B1 - PO 100 mg HS REJI Administration Current Side Effect: No Lab tests ordered: Yes Lab tests reviewed: Yes Provider note:: Patient will complete this program on 06/20/17. He has met his treatment goals and will continue to address his issues in outpatient treatment at [facility]. Told underwriter mortgage loan that from hs participation in this program, he has learned the importance of establising a sober support network in order to maintain abstinence. He responded well to Haldol 5 mg po BID, Cogentin 1 mg po BID and Haldol Decanoate 150 mg IM given on 06/09/17. Script for 30 days supply of oral Haldol and Cogentin were electronically transmitted to [facility] at [address] [place] [address]. Heis stable for discharge on 06/20/17 Total face to face time:: 35 Mental Status Exam - Mental Status Exam Alert and Oriented to: Time, Place, Person Cognitive Function: Fair Patient Appearance: Well Groomed Mood: Hopeful, Euthymic Affect: Appropriate Patient Behavior: Cooperative Speech Pattern: Clear Voice Loudness: Normal Thought Process: Intact, Goal Oriented Thought Disorder: Not Present Hallucinations: Denies Suicidal Ideation: Denies Homicidal Ideation: Denies Insight/Judgement: Fair Sleep: Well Appetite: Good Muscle strength/Tone: Normal Gait/Station: Normal Psychiatric Treatment Plan - Problem List (1) Alcohol dependence with uncomplicated withdrawal Current Visit: No (2) Cocaine dependence Current Visit: Yes (3) Nicotine dependence Current Visit: No Qualifiers: Nicotine product type: cigarettes Substance use status: uncomplicated Qualified Code(s): F17.210 - Nicotine dependence, cigarettes, uncomplicated (4) Schizophrenia Current Visit: No Qualifiers: Schizophrenia type: schizophreniform disorder Qualified Code(s): F20.81 - Schizophreniform disorder Initial treatment plan: Patient will be discharged tomorrow and referred to [facility] for outpatient treatment
[2017-06-19] MEDS: THIAMINE HCL 100 MG TABLET (FP) PO SCH (22:35)
[2017-06-20 06:59] VITALS: BP 111/69; PULSE 63; TEMP 97.4
[2017-06-20] MEDS: BENZTROPINE MESYLATE 1 MG TABLET (FP) PO SCH (09:44)
[2017-06-20] MEDS: DIVALPROEX SODIUM 500 MG TABLET E.C. PO SCH (09:44)
[2017-06-20] MEDS: PRENATAL VITAMINS W/ FOLIC ACID TABLET (FP) PO SCH (09:44)
[2017-06-20] MEDS: RANITIDINE HCL 150 MG TABLET (FP) PO SCH (09:44)
== END 2017-06-20 09:45 | disposition home or self-care (01) | DRG 772 ==
LOC: YASAS 18:12 → Y3W 18:13
PROVIDERS: ADMIT Psychiatry & Neurology Psychiatry; ATTEND Psychiatry & Neurology Psychiatry
PROC: HZ42ZZZ Group Counseling for Substance Abuse Treatment, Cognitive-Behavioral (ICD-10-PCS; principal; 2017-06-06)
DX: F10.230 Alcohol dependence with withdrawal, uncomplicated (principal); F14.20 Cocaine dependence, uncomplicated; F17.210 Nicotine dependence, cigarettes, uncomplicated; F20.81 Schizophreniform disorder

== ENCOUNTER 2018-10-14 08:45 | Inpatient (IN) | payer OTHER ==
--- NOTE | 2018-10-14 10:38 | HP ---
CIWA Score Nausea/Vomitin Muscle Tremors: 2 Anxiety: 2 Agitation: 2 Paroxysmal Sweats: 1-Minimal Palms Moist Orientation: 0-Oriented Tacttile Disturbances: 1-Very Mild Itch/Numbness Auditory Disturbances: 1-Very Mild Visual Disturbances: 0-None Headache: 2-Mild CIWA-Ar Total Score: 13 - Admission Criteria OASAS Guidelines: Admission for Medically Managed Detox: Requires at least one of the followin. CIWA greater than 12 2. Seizures within the past 24 hours 3. Delirium tremens within the past 24 hours 4. Hallucinations within the past 24 hours 5. Acute intervention needed for co occurring medical disorder 6. Acute intervention needed for co occurring psychiatric disorder 7. Severe withdrawal that cannot be handled at a lower level of care (continued vomiting, continued diarrhea, abnormal vital signs) requiring intravenous medication and/or fluids 8. Admission ROS S - HPI Chief Complaint: i need hep to stop drinking alcohol cocaine and marijuana Allergies/Adverse Reactions: Allergies Allergy/AdvReac Type Severity Reaction Status Date / Time No Known Allergies Allergy Verified 10/14/18 09:19 History of Present Illness: this 33 years old male with alcohol,cocaine and marijuana dependence,seeking detox,withdrawal symptom, multiple admission in detox, but keep relapsing last detox 2018 syncope nicotine dependence 3 packs/day,will give nicotine patch and gum weight loss deminish hearing both ears since age of 12 schizophrenia no med longest period of sobriety 7 months Exam Limitations: No Limitations - Ebola screening Have you traveled outside of the country in the last 21 days: No Have you had contact with anyone from an Ebola affected area: No Do you have a fever: No - Review of Systems Constitutional: Loss of Appetite, Malaise, Night Sweats, Changes in sleep, Weakness, Unintentional Wgt. Loss EENT: reports: Tearing, Nose Congestion, Other (deminish hearing since age of 12 years) Respiratory: reports: No Symptoms reported Cardiac: reports: No Symptoms Reported GI: reports: Nausea, Poor Appetite, Abdominal cramping : reports: No Symptoms Reported Musculoskeletal: reports: Back Pain, Muscle Pain Integumentary: reports: Dryness Neuro: reports: Tremors Endocrine: reports: No Symptoms Reported Hematology: reports: No Symptoms Reported Psychiatric: reports: No Sypmtoms Reported, Judgement Intact, Mood/Affect Appropiate, Orientated x3, other (schizophrenia) Other Systems: Reviewed and Negative Patient History - Patient Medical History Hx Anemia: No Hx Asthma: No Hx Chronic Obstructive Pulmonary Disease (COPD): No Hx Cancer: No Hx Cardiac Disorders: No Hx Hypertension: No Hx Hypercholesterolemia: No Hx Pacemaker: No HX Cerebrovascular Accident: No Hx Seizures: Yes (seizures as an infant.) Hx Dementia: No Hx Diabetes: No Hx Gastrointestinal Disorders: No Hx Liver Disease: No Hx Genitourinary Disorders: No Hx Sexually Transmitted Disorders: No Hx Renal Disease (ESRD): No Hx Thyroid Disease: No Hx Human Immunodeficiency Virus (HIV): No (last 06/30 negative) Hx Hepatitis C: No Hx Depression: Yes Hx Suicide Attempt: Yes (Tried to cut himself at 7 yrs old.) Hx Bipolar Disorder: No Hx Schizophrenia: Yes Other Medical History: no suicidal,no homicidal - Patient Surgical History Past Surgical History: No Hx Neurologic Surgery: No Hx Cataract Extraction: No Hx Cardiac Surgery: No Hx Lung Surgery: No Hx Breast Surgery: No Hx Breast Biopsy: No Hx Abdominal Surgery: No Hx Appendectomy: No Hx Cholecystectomy: No Hx Genitourinary Surgery: No Hx Section: No Hx Orthopedic Surgery: No Anesthesia Reaction: No - PPD History Previous Implant?: Yes Documented Results: Negative w/o proof Implanted On Prior R Admission?: Yes Date: 06/04/17 Results: 0mm PPD to be Administered?: Yes - Smoking Cessation Smoking history: Current every day smoker Have you smoked in the past 12 months: Yes Aproximately how many cigarettes per day: 60 Cigars Per Day: 0 Hx Chewing Tobacco Use: No Initiated information on smoking cessation: Yes 'Breaking Loose' booklet given: 10/14/18 - Substance & Tx. History Hx Alcohol Use: Yes Hx Substance Use: Yes Substance Use Type: Alcohol, Cocaine, Marijuana Hx Substance Use Treatment: Yes (2018) - Substances abused Alcohol Substance route: Oral Frequency: Daily Amount used: 5 shots liquor (5 oz) 4 beers (16 oz) Age of first use: 12 Date of last use: 10/13/18 Cocaine Substance route: Inhalation Frequency: Daily Amount used: 3 grams Age of first use: 39 Date of last use: 10/13/18 Marijuana/Hashish Substance route: Smoking Frequency: Daily Amount used: 5 bags Age of first use: 11 Date of last use: 10/13/18 Family Disease History - Family Disease History Family Disease History: Heart Disease: Mother, Other: Father () Admission Physical Exam [facility] - Vital Signs Vital Signs: Vital Signs - 24 hr 10/14/18 09:16 Temperature 98.4 F Pulse Rate 74 Respiratory 18 Rate Blood Pressure 120/71 - Physical General Appearance: Yes: Moderate Distress, Tremorous, Irritable, Sweating, Anxious HEENTM: Yes: Normal ENT Inspection, JOEY, Pharynx Normal, Other (deminish hearing both ears since age of 12) Respiratory: Yes: Lungs Clear, Normal Breath Sounds, No Respiratory Distress Neck: Yes: Within Normal Limits, Supple, Trachea in good position Breast: Yes: Within Normal Limits Cardiology: Yes: Within Normal Limits, Regular Rhythm, Regular Rate, S1, S2 Abdominal: Yes: Normal Bowel Sounds, Non Tender, Soft, Organomegaly Genitourinary: Yes: Within Normal Limits Back: Yes: Muscle Spasm Musculoskeletal: Yes: Back pain, Muscle Pain Extremities: Yes: Tremors Neurological: Yes: engineer/conductor II-XII NML intact, Fully Oriented, Alert, Motor Strength 5/5 Integumentary: Yes: Dry Lymphatic: Yes: Within Normal Limits - Diagnostic (1) Alcohol dependence with uncomplicated withdrawal Current Visit: No Status: Chronic (2) Cocaine dependence Current Visit: No Status: Acute (3) Weight loss Current Visit: No Status: Acute (4) Nicotine dependence Current Visit: No Status: Chronic Qualifiers: Nicotine product type: cigarettes Substance use status: uncomplicated Qualified Code(s): F17.210 - Nicotine dependence, cigarettes, uncomplicated (5) Schizophrenia Current Visit: No Status: Chronic Qualifiers: Schizophrenia type: schizophreniform disorder Qualified Code(s): F20.81 - Schizophreniform disorder (6) Cannabis dependence Current Visit: Yes Status: Acute (7) Weight loss Current Visit: Yes Status: Acute (8) Dehydration Current Visit: Yes Status: Acute Cleared for Admission S - Detox or Rehab [facility] Level of Care: Medically Managed Detox Regimen/Protocol: Librium, Valium Breathalyzer - Breathalyzer Breathalyzer: 0 Urine Drug Screen - Test Device Lot number: [id number] Expiration date: 06/12/20 - Control Is test valid?: Yes - Results Urine drug screen results: THC-Marijuana, MEE-Cocaine
[2018-10-14] MEDS ORDERED: ACETAMINOPHEN 325 MG TABLET (FP) PO PRN ×2 (10:49)
[2018-10-14] MEDS ORDERED: IBUPROFEN 400 MG TABLET (FP) PO PRN (10:49)
[2018-10-14] MEDS ORDERED: hydrOXYzine PAMOATE 25 MG CAPSULE (FP) PO PRN (10:49)
[2018-10-14] MEDS ORDERED: diazePAM 5 MG TABLET PO PRN (10:49)
[2018-10-14] MEDS ORDERED: METHOCARBAMOL 500 MG TABLET PO PRN (10:49)
[2018-10-14] MEDS ORDERED: NICOTINE POLACRILEX 2 MG GUM BUC PRN (10:49)
[2018-10-14] MEDS ORDERED: MAGNESIUM CITRATE 300 ML BOTTLE PO PRN (10:49)
[2018-10-14] MEDS ORDERED: BISMUTH SUBSALICYLATE 524 MG/30 ML UD PO PRN (10:49)
[2018-10-14] MEDS ORDERED: MAG HYDROX/AL HYDROX/SIMETH 30 ML UNIT-DOSE CUP PO PRN (10:49)
[2018-10-14] MEDS ORDERED: MAGNESIUM HYDROX 2400MG/30ML ORAL SUSPENSION 30 ML CUP PO PRN (10:49)
[2018-10-14] MEDS ORDERED: MENTHOL/PHENOL 1 EACH UD MM PRN (10:49)
[2018-10-14] MEDS ORDERED: MELATONIN 5 MG TABLETS PO PRN (10:49)
[2018-10-14] MEDS: NICOTINE 21 MG/24 HOURS TOPICAL PATCH TD SCH (12:28)
[2018-10-14] MEDS: diazePAM 5 MG TABLET PO SCH ×2 (14:02→22:19)
[2018-10-14 14:45] LABS: HEMATOCRIT 38.8 % (35.4-49); HEMOGLOBIN 12.6 GM/dL (11.7-16.9); MCH 27.7 pg (25.7-33.7); MCHC 32.4 g/dl (32.0-35.9); MEAN CELL VOLUME 85.6 fl (80-96); MEAN PLT VOLUME 11.3 fl (7.5-11.1); PLATELET COUNT 109 K/MM3 (134-434); RBC 4.54 M/mm3 (4.00-5.60); RDW 14.3 % (11.9-15.9)
[2018-10-14 14:57] LABS: ALBUMIN 3.3 g/dl (3.4-5.0); ALK PHOS 97 U/L (45-117); ANION GAP 6 MMOL/L (8-16); BILIRUBIN,TOTAL 0.2 mg/dL (0.2-1); BLOOD UREA NITROGEN 21 mg/dL (7-18); CALCIUM 8.7 mg/dL (8.5-10.1); CHLORIDE 107 mmol/L (98-107); CO2 27 mmol/L (21-32); CREATININE 0.8 mg/dL (0.55-1.3); GLUCOSE,RANDOM 86 mg/dL (74-106); POTASSIUM 4.1 mmol/L (3.5-5.1); SGOT/AST 24 U/L (15-37); SGPT/ALT 21 U/L (13-61); SODIUM 140 mmol/L (136-145); TOT PROT 6.4 g/dl (6.4-8.2)
[2018-10-14] MEDS ORDERED: THIAMINE HCL 100 MG TABLET (FP) PO SCH (22:00)
[2018-10-15] MEDS: diazePAM 5 MG TABLET PO SCH (05:27)
[2018-10-15 09:15] VITALS: PULSE 72
[2018-10-15] MEDS ORDERED: PRENATAL VITAMINS W/ FOLIC ACID TABLET (FP) PO SCH (10:00)
[2018-10-15] MEDS: NICOTINE 21 MG/24 HOURS TOPICAL PATCH TD SCH (10:16)
[2018-10-15] MEDS ORDERED: HALOPERIDOL 5 MG TABLET (FP) PO SCH (11:00)
[2018-10-15] MEDS ORDERED: BENZTROPINE MESYLATE 1 MG TABLET (FP) PO SCH (11:00)
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
[2018-10-15] MEDS ORDERED: diazePAM 5 MG TABLET PO SCH (14:00)
[2018-10-15 14:12] VITALS: BP 104/60; TEMP 97.5
--- NOTE | 2018-10-15 19:52 | PN ---
S CIWA - CIWA Score Nausea/Vomitin-No Nausea/No Vomiting Muscle Tremors: 2 Anxiety: 4-Mod. Anxious/Guarded Agitation: 3 Paroxysmal Sweats: 2 Orientation: 0-Oriented Tacttile Disturbances: 1-Very Mild Itch/Numbness Auditory Disturbances: 0-None Visual Disturbances: 0-None Headache: 0-None Present CIWA-Ar Total Score: 12 B[facility] Progress Note (SOAP) Subjective: Anxious, Tremors. Objective: PATIENT A & O X 3, OBSERVED AMBULATING ON UNIT. IN NO ACUTE DISTRESS. Vital Signs Temperature 97.5 F L 10/15/18 14:10 Pulse Rate 72 10/15/18 14:10 Respiratory Rate 18 10/15/18 14:10 Blood Pressure 104/60 10/15/18 14:10 O2 Sat by Pulse Oximetry (%) Laboratory Tests 10/14/18 10/14/18 10/14/18 11:00 11:00 11:00 WBC 5.0 RBC 4.54 Hgb 12.6 Hct 38.8 MCV 85.6 MCH 27.7 MCHC 32.4 RDW 14.3 Plt Count 109 L MPV 11.3 H Sodium 140 Potassium 4.1 Chloride 107 Carbon Dioxide 27 Anion Gap 6 L BUN 21 H Creatinine 0.8 Creat Clearance w eGFR 111.33 Random Glucose 86 Calcium 8.7 Total Bilirubin 0.2 AST 24 ALT 21 Alkaline Phosphatase 97 Total Protein 6.4 Albumin 3.3 L RPR Titer Nonreactive LABS NOTED. 10/15/18 19:51 Assessment: 10/15/18 19:51 WITHDRAWAL SYMPTOMS. Plan: CONTINUE DETOX.
--- NOTE | 2018-10-15 19:53 | DS ---
[facility] Detox Discharge Summary Admission Date: 10/14/18 Discharge Date: 10/15/18 - History Present History: Alcohol Dependence, Cocaine Dependence Additional Comments: DESPITE EFFORTS BY [facility] AND BY NURSING STAFF TO ADDRESS PATIENT'S MEDICAL NEEDS / CONCERNS, PATIENT DOES NOT WISH TO REMAIN TO COMPLETE DETOX REGIMEN. RISKS OF LEAVING DETOX UNIT AGAINST MEDICAL ADVICE AND PRIOR TO COMPLETION OF DETOX REGIMEN EXPLAINED TO PATIENT. PATIENT ADVISED TO GO IMMEDIATELY TO NEAREST ER SHOULD ANY INTOLERABLE WITHDRAWAL / DETOX SYMPTOMS DEVELOP AT ANY TIME. PATIENT VERBALIZED UNDERSTANDING OF ALL INFORMATION / RECOMMENDATIONS PRESENTED TO HIM PRIOR TO DEPARTURE FROM DETOX UNIT. PATIENT LEFT DETOX UNIT IN STABLE MEDICAL CONDITION. Pertinent Past History: History of Seizures (As An ), Depression, Schizophrenia, Weight Loss, Nicotine Dependence, Dehydration. - Physical Exam Results Vital Signs: Vital Signs Temperature 97.5 F L 10/15/18 14:10 Pulse Rate 72 10/15/18 14:10 Respiratory Rate 18 10/15/18 14:10 Blood Pressure 104/60 10/15/18 14:10 O2 Sat by Pulse Oximetry (%) Pertinent Admission Physical Exam Findings: WITHDRAWAL SYMPTOMS. Laboratory Tests 10/14/18 10/14/18 10/14/18 11:00 11:00 11:00 WBC 5.0 RBC 4.54 Hgb 12.6 Hct 38.8 MCV 85.6 MCH 27.7 MCHC 32.4 RDW 14.3 Plt Count 109 L MPV 11.3 H Sodium 140 Potassium 4.1 Chloride 107 Carbon Dioxide 27 Anion Gap 6 L BUN 21 H Creatinine 0.8 Creat Clearance w eGFR 111.33 Random Glucose 86 Calcium 8.7 Total Bilirubin 0.2 AST 24 ALT 21 Alkaline Phosphatase 97 Total Protein 6.4 Albumin 3.3 L RPR Titer Nonreactive LABS NOTED. - Treatment Hospital Course: Detox Protocol Followed, Detoxed Safely - Medication Discharge Medications: Ambulatory Orders Benztropine Mesylate [Cogentin -] 1 mg PO BID #60 tablet 06/19/17 Haloperidol [Haldol -] 5 mg PO BID #60 tablet 06/19/17 Divalproex [Depakote -] 250 mg PO BID 10/14/18 - Diagnosis (1) Cannabis dependence Status: Acute (2) Cocaine dependence Status: Acute Qualifiers: Substance use status: uncomplicated Qualified Code(s): F14.20 - Cocaine dependence, uncomplicated (3) Dehydration Status: Acute (4) Weight loss Status: Acute (5) Alcohol dependence with uncomplicated withdrawal Status: Chronic (6) Nicotine dependence Status: Chronic Qualifiers: Nicotine product type: cigarettes Substance use status: uncomplicated Qualified Code(s): F17.210 - Nicotine dependence, cigarettes, uncomplicated (7) Schizophrenia Status: Chronic Qualifiers: Schizophrenia type: schizophreniform disorder Qualified Code(s): F20.81 - Schizophreniform disorder - AMA Did Patient Leave Against Medical Advice: Yes (PATIENT DID NOT WISH TO REMAIN TO COMPLETE DETOX REGIMEN.)
[2018-10-15] MEDS ORDERED: DIVALPROEX SODIUM 250 MG TABLET E.C. PO SCH (22:00)
[2018-10-16] MEDS ORDERED: diazePAM 5 MG TABLET PO ONE (06:00)
== END 2018-10-15 14:10 | disposition left against medical advice (07) | DRG 770 ==
LOC: YASAS 08:45 → Y3N 10:57
PROVIDERS: ADMIT Surgery; ATTEND Surgery
PROC: HZ2ZZZZ Detoxification Services for Substance Abuse Treatment (ICD-10-PCS; principal; 2018-10-14)
DX: F10.230 Alcohol dependence with withdrawal, uncomplicated (principal); F14.20 Cocaine dependence, uncomplicated; F12.20 Cannabis dependence, uncomplicated; F17.210 Nicotine dependence, cigarettes, uncomplicated; F20.81 Schizophreniform disorder; E86.0 Dehydration; R63.4 Abnormal weight loss; Z91.5 Personal history of self-harm
CPT/HCPCS: 36415; 80053; 85027; 86593

== ENCOUNTER 2018-11-17 16:19 | Inpatient (IN) | payer OTHER ==
[2018-11-17 20:34] VITALS: BMI 20.7
--- NOTE | 2018-11-17 21:38 | HP ---
CIWA Score Nausea/Vomitin-Mild Nausea/No Vomiting Muscle Tremors: 3 Anxiety: 3 Agitation: 3 Paroxysmal Sweats: 2 Orientation: 1-Uncertain about Date Tacttile Disturbances: 0-None Auditory Disturbances: 0-None Visual Disturbances: 0-None Headache: 4-Moderately Severe CIWA-Ar Total Score: 17 - Admission Criteria OASAS Guidelines: Admission for Medically Managed Detox: Requires at least one of the followin. CIWA greater than 12 2. Seizures within the past 24 hours 3. Delirium tremens within the past 24 hours 4. Hallucinations within the past 24 hours 5. Acute intervention needed for co occurring medical disorder 6. Acute intervention needed for co occurring psychiatric disorder 7. Severe withdrawal that cannot be handled at a lower level of care (continued vomiting, continued diarrhea, abnormal vital signs) requiring intravenous medication and/or fluids 8. Admission ROS [facility] Chief Complaint: Alcohol withdrawal symptoms Allergies/Adverse Reactions: Allergies Allergy/AdvReac Type Severity Reaction Status Date / Time No Known Allergies Allergy Verified 11/17/18 20:16 History of Present Illness: 33 years old male with a long history of alcohol dependence is seeking admission to detox. Patient was in detox from 2018 - 2018 but left against medical advice. Patient reports that he will complete his present detox admission. He reports insignificant period of sobriety. He has medical history of seizures and depression. He reports that he has history of blackouts , last episode was on this past Friday. Reports 2 suicide attempt within 3 months ( September 17, 2018 October 12, 2018 with overdose ). He denies suicidal ideation at this time. Exam Limitations: No Limitations - Ebola screening Have you traveled outside of the country in the last 21 days: No Have you had contact with anyone from an Ebola affected area: No Have you been sick,other than usual withdrawal symptoms: No - Review of Systems Constitutional: Chills, Loss of Appetite, Night Sweats, Changes in sleep EENT: reports: Sinus Pressure Respiratory: reports: No Symptoms reported Cardiac: reports: No Symptoms Reported GI: reports: Poor Fluid Intake, Vomiting, Abdominal cramping : reports: No Symptoms Reported Musculoskeletal: reports: Joint Pain, Muscle Pain Integumentary: reports: Dryness Neuro: reports: Tremors Endocrine: reports: No Symptoms Reported Hematology: reports: No Symptoms Reported Psychiatric: reports: Mood/Affect Appropiate, Anxious Other Systems: Reviewed and Negative Patient History - Patient Medical History Hx Anemia: No Hx Asthma: No Hx Chronic Obstructive Pulmonary Disease (COPD): No Hx Cancer: No Hx Cardiac Disorders: No Hx Hypertension: No Hx Hypercholesterolemia: No Hx Pacemaker: No HX Cerebrovascular Accident: No Hx Seizures: Yes (Last seizure was November 15, 2018) Hx Dementia: No Hx Diabetes: No Hx Gastrointestinal Disorders: No Hx Liver Disease: No Hx Genitourinary Disorders: No Hx Sexually Transmitted Disorders: No Hx Renal Disease (ESRD): No Hx Thyroid Disease: No Hx Human Immunodeficiency Virus (HIV): No (last 06/30 negative) Hx Hepatitis C: No Hx Depression: Yes (Not on medication) Hx Suicide Attempt: Yes (2 attempts in 3 months. Denies suicidal ideation at this time) Hx Bipolar Disorder: No Hx Schizophrenia: Yes - Patient Surgical History Past Surgical History: No Hx Neurologic Surgery: No Hx Cataract Extraction: No Hx Cardiac Surgery: No Hx Lung Surgery: No Hx Breast Surgery: No Hx Breast Biopsy: No Hx Abdominal Surgery: No Hx Appendectomy: No Hx Cholecystectomy: No Hx Genitourinary Surgery: No Hx Section: No Hx Orthopedic Surgery: No Anesthesia Reaction: No - PPD History Previous Implant?: Yes Documented Results: Negative w/proof Implanted On Prior R Admission?: Yes Date: 06/04/17 Results: 0mm PPD to be Administered?: Yes - Reproductive History Patient is a Female of Child Bearing Age (11 -55 yrs old): No (Male) - Smoking Cessation Smoking history: Current every day smoker Have you smoked in the past 12 months: Yes Aproximately how many cigarettes per day: 60 Cigars Per Day: 0 Hx Chewing Tobacco Use: No Initiated information on smoking cessation: Yes 'Breaking Loose' booklet given: 11/17/18 - Substance & Tx. History Hx Alcohol Use: Yes Substance Use Type: Alcohol, Cocaine, Marijuana Hx Substance Use Treatment: Yes ([facility]) - Substances abused Alcohol Substance route: Oral Frequency: Daily Amount used: 2 BOTTLES OF HENNESEY, 4 22 OZ. OF BEER Age of first use: 12 Date of last use: 11/15/18 Cocaine Substance route: Inhalation Frequency: Daily Amount used: 4 GRAMS Age of first use: 25 Date of last use: 11/15/18 Marijuana/Hashish Substance route: Oral Frequency: Daily Amount used: 5 bags Age of first use: 11 Date of last use: 10/13/18 Family Disease History - Family Disease History Family Disease History: Heart Disease: Mother, Other: Father () Admission Physical Exam [facility] - Vital Signs Vital Signs: Vital Signs - 24 hr 11/17/18 20:25 Temperature 97.6 F Pulse Rate 61 Respiratory 16 Rate Blood Pressure 123/71 - Physical General Appearance: Yes: Moderate Distress, Intoxicated, Tremorous, Irritable, Sweating, Anxious HEENTM: Yes: EOMI, Normal ENT Inspection, Normocephalic, Normal Voice, JOEY Respiratory: Yes: Lungs Clear, Normal Breath Sounds, No Respiratory Distress Neck: Yes: Supple Breast: Yes: Breast Exam Deferred Cardiology: Yes: Regular Rhythm, Regular Rate Abdominal: Yes: Normal Bowel Sounds, Soft Genitourinary: Yes: Within Normal Limits Back: Yes: Normal Inspection Musculoskeletal: Yes: Within Normal Limits Extremities: Yes: Normal Inspection Neurological: Yes: Alert, Normal Mood/Affect Integumentary: Yes: Warm Lymphatic: Yes: Within Normal Limits - Diagnostic (1) Cannabis dependence Current Visit: Yes Status: Chronic (2) Cocaine dependence Current Visit: Yes Status: Chronic Qualifiers: Substance use status: uncomplicated Qualified Code(s): F14.20 - Cocaine dependence, uncomplicated (3) Alcohol dependence with uncomplicated withdrawal Current Visit: Yes Status: Chronic (4) GERD (gastroesophageal reflux disease) Current Visit: Yes Status: Chronic Qualifiers: Esophagitis presence: without esophagitis Qualified Code(s): K21.9 - Gastro -esophageal reflux disease without esophagitis (5) Nicotine dependence Current Visit: Yes Status: Chronic Qualifiers: Nicotine product type: cigarettes Substance use status: uncomplicated Qualified Code(s): F17.210 - Nicotine dependence, cigarettes, uncomplicated (6) Seizure Current Visit: Yes Status: Chronic Cleared for Admission S - Detox or Rehab [facility] Level of Care: Medically Managed Detox Regimen/Protocol: Librium Breathalyzer - Breathalyzer Breathalyzer: 0 Urine Drug Screen - Test Device Lot number: [id number] Expiration date: 06/12/20 - Control Is test valid?: Yes - Results Drug screen NEGATIVE: No Urine drug screen results: THC-Marijuana, MEE-Cocaine Inpatient Rehab Admission - Rehab Decision to Admit Inpatient rehab admission?: No
[2018-11-17] MEDS ORDERED: NICOTINE POLACRILEX 2 MG GUM BUC PRN (21:56)
[2018-11-17] MEDS ORDERED: MAGNESIUM CITRATE 300 ML BOTTLE PO PRN (21:56)
[2018-11-17] MEDS ORDERED: ACETAMINOPHEN 325 MG TABLET (FP) PO PRN ×2 (21:56)
[2018-11-17] MEDS ORDERED: IBUPROFEN 400 MG TABLET (FP) PO PRN (21:56)
[2018-11-17] MEDS ORDERED: hydrOXYzine PAMOATE 25 MG CAPSULE (FP) PO PRN (21:56)
[2018-11-17] MEDS ORDERED: MENTHOL/PHENOL 1 EACH UD MM PRN (21:56)
[2018-11-17] MEDS ORDERED: METHOCARBAMOL 500 MG TABLET PO PRN (21:56)
[2018-11-17] MEDS ORDERED: MAG HYDROX/AL HYDROX/SIMETH 30 ML UNIT-DOSE CUP PO PRN (21:56)
[2018-11-17] MEDS ORDERED: BISMUTH SUBSALICYLATE 524 MG/30 ML UD PO PRN (21:56)
[2018-11-17] MEDS ORDERED: MELATONIN 5 MG TABLETS PO PRN (21:56)
[2018-11-17] MEDS ORDERED: MAGNESIUM HYDROX 2400MG/30ML ORAL SUSPENSION 30 ML CUP PO PRN (21:56)
[2018-11-17] MEDS ORDERED: chlordiazePOXIDE HCL 25 MG CAPSULE PO PRN (22:06)
[2018-11-17] MEDS: THIAMINE HCL 100 MG TABLET (FP) PO SCH (23:03)
[2018-11-17] MEDS: chlordiazePOXIDE HCL 25 MG CAPSULE PO SCH (23:04)
[2018-11-18] MEDS: chlordiazePOXIDE HCL 25 MG CAPSULE PO SCH ×4 (07:09→22:23)
[2018-11-18] MEDS: PRENATAL VITAMINS W/ FOLIC ACID TABLET (FP) PO SCH (10:50)
[2018-11-18 12:48] LABS: HEMATOCRIT 40.6 % (35.4-49); HEMOGLOBIN 13.3 GM/dL (11.7-16.9); MCH 27.8 pg (25.7-33.7); MCHC 32.9 g/dl (32.0-35.9); MEAN CELL VOLUME 84.4 fl (80-96); MEAN PLT VOLUME 11.5 fl (7.5-11.1); PLATELET COUNT 123 K/MM3 (134-434); RDW 14.2 % (11.9-15.9); WHITE BLOOD COUNT 4.6 K/mm3 (4.0-10.0)
[2018-11-18 12:57] LABS: ALBUMIN 3.3 g/dl (3.4-5.0); ALK PHOS 82 U/L (45-117); ANION GAP 7 MMOL/L (8-16); BILIRUBIN,TOTAL 0.3 mg/dL (0.2-1); BLOOD UREA NITROGEN 15 mg/dL (7-18); CHLORIDE 105 mmol/L (98-107); CO2 27 mmol/L (21-32); CREATININE 0.7 mg/dL (0.55-1.3); GLUCOSE,RANDOM 96 mg/dL (74-106); POTASSIUM 3.8 mmol/L (3.5-5.1); SGOT/AST 18 U/L (15-37); SGPT/ALT 21 U/L (13-61); SODIUM 138 mmol/L (136-145); TOT PROT 6.3 g/dl (6.4-8.2)
[2018-11-18] MEDS: NICOTINE 14 MG/24 HOURS TOPICAL PATCH TD SCH (13:53)
--- NOTE | 2018-11-18 16:51 | PN ---
[facility] CIWA - CIWA Score Nausea/Vomitin-No Nausea/No Vomiting Muscle Tremors: 3 Anxiety: 3 Agitation: 1-Slight > Activity Paroxysmal Sweats: 3 Orientation: 0-Oriented Tacttile Disturbances: 3-Moderate Itch/Numb/Burn Auditory Disturbances: 1-Very Mild Visual Disturbances: 0-None Headache: 0-None Present CIWA-Ar Total Score: 14 S Progress Note (SOAP) Subjective: Fatigue, Sweating, Tremors, Anxious. Objective: PATIENT A & O X 3, OBSERVED AMBULATING ON UNIT UNASSISTED. IN NO ACUTE DISTRESS. 11/18/18 16:52 Vital Signs Temperature 98.7 F 11/18/18 13:48 Pulse Rate 60 11/18/18 13:48 Respiratory Rate 18 11/18/18 13:48 Blood Pressure 104/57 L 11/18/18 13:48 O2 Sat by Pulse Oximetry (%) Laboratory Tests 11/18/18 11/18/18 07:30 07:30 WBC 4.6 RBC 4.80 Hgb 13.3 Hct 40.6 MCV 84.4 MCH 27.8 MCHC 32.9 RDW 14.2 Plt Count 123 L MPV 11.5 H Sodium 138 Potassium 3.8 Chloride 105 Carbon Dioxide 27 Anion Gap 7 L BUN 15 Creatinine 0.7 Creat Clearance w eGFR 129.88 Random Glucose 96 Calcium 9.0 Total Bilirubin 0.3 AST 18 ALT 21 Alkaline Phosphatase 82 Total Protein 6.3 L Albumin 3.3 L LABS NOTED. PATIENT HAS HAD LOW PLATELET LEVELS ON PREVIOUS ADMISSIONS. RPR RESULT PENDING. 11/18/18 16:53 Assessment: 11/18/18 16:53 WITHDRAWAL SYMPTOMS. THROMBOCYTOPENIA. Plan: CONTINUE DETOX. INCREASE DAILY PO FLUID / WATER INTAKE.
--- NOTE | 2018-11-18 18:13 | CONSULT ---
[facility] Psychiatric Consult - Data Date of interview: 11/18/18 Admission source: [facility] Identifying data: Readmission to [facility] for this 33 y/o male self- referred for detoxification (alcohol, cocaine). Examined on . Patient is single, without children, domiciled, unemployed and supported on SSI benefits. Substance Abuse History: [facility] report on substance abuse profile is confirmed by the patient . Details as follows : Smoking history: Current every day smoker. Have you smoked in the past 12 months: Yes. Aproximately how many cigarettes per day: 60. Cigars Per Day: 0. Hx Chewing Tobacco Use: No. Initiated information on smoking cessation: Yes. 'Breaking Loose' booklet given: . - Substance & Tx. History. Hx Alcohol Use: Yes. Substance Use Type: Alcohol, Cocaine, Marijuana. Hx Substance Use Treatment: Yes ([facility]). - Substances abused. Alcohol. Substance route: Oral. Frequency: Daily. Amount used: 2 BOTTLES OF HENNESEY, 4 22 OZ. OF BEER. Age of first use: 12. Date of last use: 11/15/18. Cocaine. Substance route: Inhalation. Frequency: Daily. Amount used: 4 GRAMS. Age of first use: 25. Date of last use: 11/15/18. Marijuana/Hashish. Substance route: Oral. Frequency: Daily. Amount used: 5 bags. Age of first use: 11. Date of last use : 10/13/18 Medical History: Remarkable for a history of withdrawal-related seizures. Psychiatric History: First psychiatric hospitalization : age 18. Patient has been diagnosed with Paranoid Schizophrenia. Presents with a history of multiple psychiatric hospitalizations ([facility], [facility], [facility], [facility], [facility]). Mr Reardon is currently followed by the [facility] (maintained on haldol decanoate 150 mg IM monthly; patient reports that he received his injection, about a week ago). on 04/05/17. Patient presents with a history of multipl suicide attempts (showering with hot water, overdosing with medications, wrist- cutting). Records indicate a pattern of TWO suicide attempts within a 2-month interval (September - October 2018). Physical/Sexual Abuse/Trauma History: Patient declines to discuss this domain. Additional Comment: Urine drug screen results: THC-Marijuana, MEE-Cocaine. Noted. Mental Status Exam - Mental Status Exam Alert and Oriented to: Time, Place, Person Cognitive Function: Good Patient Appearance: Well Groomed Mood: Withdrawn, Anxious, Apprehensive Affect: Mood Congruent, Blunted Patient Behavior: Fatigued, Appropriate, Cooperative Speech Pattern: Clear Voice Loudness: Normal Thought Process: Goal Oriented Thought Disorder: Not Present Hallucinations: Denies Suicidal Ideation: Denies Homicidal Ideation: Denies Insight/Judgement: Poor Sleep: Fair Appetite: Good Muscle strength/Tone: Normal Gait/Station: Normal Psychiatric Findings - Problem List ([place] 1, 2,3) (1) Alcohol dependence with uncomplicated withdrawal Current Visit: Yes Status: Acute (2) Cannabis dependence Current Visit: Yes Status: Chronic (3) Cocaine dependence Current Visit: Yes Status: Chronic Qualifiers: Substance use status: uncomplicated Qualified Code(s): F14.20 - Cocaine dependence, uncomplicated (4) Nicotine dependence Current Visit: Yes Status: Chronic Qualifiers: Nicotine product type: cigarettes Substance use status: uncomplicated Qualified Code(s): F17.210 - Nicotine dependence, cigarettes, uncomplicated (5) Substance induced mood disorder Current Visit: Yes Status: Chronic (6) Schizophrenia Current Visit: Yes Status: Chronic Qualifiers: Schizophrenia type: paranoid schizophrenia Qualified Code(s): F20.0 - Paranoid schizophrenia - Initial Treatment Plan Initial Treatment Plan: Psychoeducation. [place] [facility] team will be contacted for collateral information (verification of date of last injection). Support. AA meetings. Observation.
[2018-11-18] MEDS: THIAMINE HCL 100 MG TABLET (FP) PO SCH (22:23)
[2018-11-19] MEDS: chlordiazePOXIDE HCL 25 MG CAPSULE PO SCH ×2 (06:14→10:12)
[2018-11-19 09:16] VITALS: TEMP 98.1
--- NOTE | 2018-11-19 10:08 | PN ---
S CIWA - CIWA Score Nausea/Vomitin Muscle Tremors: 2 Anxiety: 2 Agitation: 2 Paroxysmal Sweats: 1-Minimal Palms Moist Orientation: 0-Oriented Tacttile Disturbances: 1-Very Mild Itch/Numbness Auditory Disturbances: 1-Very Mild Visual Disturbances: 0-None Headache: 2-Mild CIWA-Ar Total Score: 13 BHS Progress Note (SOAP) Subjective: alert,irritable,anxious,interrupted sleep,tremor Objective: 11/19/18 10:07 Vital Signs Temperature 98.1 F 11/19/18 09:16 Pulse Rate 74 11/19/18 09:16 Respiratory Rate 18 11/19/18 09:16 Blood Pressure 130/53 L 11/19/18 09:16 O2 Sat by Pulse Oximetry (%) Laboratory Last Values WBC 4.6 K/mm3 (4.0-10.0) 11/18/18 07:30 RBC 4.80 M/mm3 (4.00-5.60) 11/18/18 07:30 Hgb 13.3 GM/dL (11.7-16.9) 11/18/18 07:30 Hct 40.6 % (35.4-49) 11/18/18 07:30 MCV 84.4 fl (80-96) 11/18/18 07:30 MCH 27.8 pg (25.7-33.7) 11/18/18 07:30 MCHC 32.9 g/dl (32.0-35.9) 11/18/18 07:30 RDW 14.2 % (11.9-15.9) 11/18/18 07:30 Plt Count 123 K/MM3 (134-434) L 11/18/18 07:30 MPV 11.5 fl (7.5-11.1) H 11/18/18 07:30 Sodium 138 mmol/L (136-145) 11/18/18 07:30 Potassium 3.8 mmol/L (3.5-5.1) 11/18/18 07:30 Chloride 105 mmol/L (98-107) 11/18/18 07:30 Carbon Dioxide 27 mmol/L (21-32) 11/18/18 07:30 Anion Gap 7 MMOL/L (8-16) L 11/18/18 07:30 BUN 15 mg/dL (7-18) 11/18/18 07:30 Creatinine 0.7 mg/dL (0.55-1.3) 11/18/18 07:30 Creat Clearance w eGFR 129.88 (>60) 11/18/18 07:30 Random Glucose 96 mg/dL (74-106) 11/18/18 07:30 Calcium 9.0 mg/dL (8.5-10.1) 11/18/18 07:30 Total Bilirubin 0.3 mg/dL (0.2-1) 11/18/18 07:30 AST 18 U/L (15-37) 11/18/18 07:30 ALT 21 U/L (13-61) 11/18/18 07:30 Alkaline Phosphatase 82 U/L (45-117) 11/18/18 07:30 Total Protein 6.3 g/dl (6.4-8.2) L 11/18/18 07:30 Albumin 3.3 g/dl (3.4-5.0) L 11/18/18 07:30 RPR Titer Nonreactive (NONREACTIVE) 11/18/18 07:30 Assessment: 11/19/18 10:07 withdrawal symptom Plan: continue detox
[2018-11-19] MEDS: NICOTINE 14 MG/24 HOURS TOPICAL PATCH TD SCH (10:12)
[2018-11-19] MEDS: PRENATAL VITAMINS W/ FOLIC ACID TABLET (FP) PO SCH (10:12)
[2018-11-19 13:37] VITALS: BP 120/71; PULSE 80
--- NOTE | 2018-11-19 15:17 | PN ---
[facility] Progress Note Note: pt states he wants to be close to family and wants to go home. pt was advised to stay and complete his detox and the possibility for relapse may occur..however pt insisted he will remain safe and free from any drugs and alcohol because he is going to be with family. pt is aaox3 ambulating no distress no s/s of withdrawal noted. pt signed out AMA.
--- NOTE | 2018-11-19 15:18 | DS ---
[facility] Detox Discharge Summary Admission Date: 11/17/18 - History Present History: Alcohol Dependence, Cannabis Dependence, Cocaine Dependence - Physical Exam Results Vital Signs: Vital Signs Temperature 98.1 F 11/19/18 13:36 Pulse Rate 80 11/19/18 13:36 Respiratory Rate 18 11/19/18 13:36 Blood Pressure 120/71 11/19/18 13:36 O2 Sat by Pulse Oximetry (%) - Treatment Hospital Course: Responded well, Discharged Condition Good - Medication Discharge Medications: Ambulatory Orders Haldol 150 mg 11/17/18 - Diagnosis (1) Alcohol dependence with uncomplicated withdrawal Current Visit: Yes Status: Acute (2) Cannabis dependence Current Visit: Yes Status: Chronic (3) Cocaine dependence Current Visit: Yes Status: Chronic Qualifiers: Substance use status: uncomplicated Qualified Code(s): F14.20 - Cocaine dependence, uncomplicated (4) GERD (gastroesophageal reflux disease) Current Visit: Yes Status: Chronic Qualifiers: Esophagitis presence: without esophagitis Qualified Code(s): K21.9 - Gastro -esophageal reflux disease without esophagitis (5) Nicotine dependence Current Visit: Yes Status: Chronic Qualifiers: Nicotine product type: cigarettes Substance use status: uncomplicated Qualified Code(s): F17.210 - Nicotine dependence, cigarettes, uncomplicated (6) Schizophrenia Current Visit: Yes Status: Chronic Qualifiers: Schizophrenia type: paranoid schizophrenia Qualified Code(s): F20.0 - Paranoid schizophrenia (7) Seizure Current Visit: Yes Status: Chronic (8) Substance induced mood disorder Current Visit: Yes Status: Chronic (9) Dehydration Current Visit: No Status: Acute (10) Weight loss Current Visit: No Status: Acute (11) Weight loss Current Visit: No Status: Acute - AMA Did Patient Leave Against Medical Advice: Yes (declined aftercare; going home)
[2018-11-19] MEDS ORDERED: chlordiazePOXIDE HCL 10 MG CAPSULE PO PRN (23:00)
[2018-11-19] MEDS ORDERED: chlordiazePOXIDE HCL 10 MG CAPSULE PO SCH (23:00)
[2018-11-20] MEDS ORDERED: chlordiazePOXIDE HCL 10 MG CAPSULE PO SCH (23:00)
== END 2018-11-19 15:22 | disposition left against medical advice (07) | DRG 770 ==
LOC: YASAS 16:19 → Y6N 22:35
PROVIDERS: ADMIT Surgery; ATTEND Surgery
PROC: HZ2ZZZZ Detoxification Services for Substance Abuse Treatment (ICD-10-PCS; principal; 2018-11-17)
DX: F10.230 Alcohol dependence with withdrawal, uncomplicated (principal); F14.20 Cocaine dependence, uncomplicated; F12.20 Cannabis dependence, uncomplicated; F17.210 Nicotine dependence, cigarettes, uncomplicated; F19.24 Other psychoactive substance dependence with psychoactive substance-induced mood disorder; F20.0 Paranoid schizophrenia; K21.9 Gastro-esophageal reflux disease without esophagitis; E86.0 Dehydration; R63.4 Abnormal weight loss; D69.6 Thrombocytopenia, unspecified; Z86.69 Personal history of other diseases of the nervous system and sense organs; Z91.5 Personal history of self-harm
CPT/HCPCS: 36415; 80053; 85027; 86593

== ENCOUNTER 2019-02-14 08:57 | Inpatient (IN) | payer OTHER ==
[2019-02-14 09:23] VITALS: BMI 21.4
--- NOTE | 2019-02-14 10:11 | HP ---
CIWA Score Nausea/Vomitin Muscle Tremors: 2 Anxiety: 3 Agitation: 3 Paroxysmal Sweats: 1-Minimal Palms Moist Orientation: 0-Oriented Tacttile Disturbances: 1-Very Mild Itch/Numbness Auditory Disturbances: 0-None Visual Disturbances: 0-None Headache: 2-Mild CIWA-Ar Total Score: 14 - Admission Criteria OASAS Guidelines: Admission for Medically Managed Detox: Requires at least one of the followin. CIWA greater than 12 2. Seizures within the past 24 hours 3. Delirium tremens within the past 24 hours 4. Hallucinations within the past 24 hours 5. Acute intervention needed for co occurring medical disorder 6. Acute intervention needed for co occurring psychiatric disorder 7. Severe withdrawal that cannot be handled at a lower level of care (continued vomiting, continued diarrhea, abnormal vital signs) requiring intravenous medication and/or fluids 8. Admission ROS S - HPI Chief Complaint: i need help to stop drinking alcohol and heroin abused Allergies/Adverse Reactions: Allergies Allergy/AdvReac Type Severity Reaction Status Date / Time No Known Allergies Allergy Verified 02/14/19 09:29 History of Present Illness: this 34 years old male with alcohol dependence,cocaine and marijuana dependence, heroin abused had previous admissions in the past,last [facility] 11/17/18 to 11/19/18 but keep relapsing,seizure last 11/29 syncope 4 days ago seen in [place] last night schizophrenia weight loss longest sobriety for 1 year plan to go to rehab multiples admissions but keep relapsing nicotine dependence 1 pack/day,would like nicotine patch and gum Exam Limitations: No Limitations - Ebola screening Have you traveled outside of the country in the last 21 days: No (N) Have you had contact with anyone from an Ebola affected area: No Do you have a fever: No - Review of Systems Constitutional: Loss of Appetite, Malaise, Night Sweats, Changes in sleep, Weakness, Unintentional Wgt. Loss EENT: reports: Tearing, Nose Congestion Respiratory: reports: No Symptoms reported Cardiac: reports: No Symptoms Reported GI: reports: Nausea, Poor Fluid Intake, Vomiting, Abdominal cramping : reports: No Symptoms Reported Musculoskeletal: reports: Back Pain, Muscle Pain Integumentary: reports: Dryness Neuro: reports: Headache, Tremors Endocrine: reports: No Symptoms Reported Hematology: reports: No Symptoms Reported Psychiatric: reports: No Sypmtoms Reported, Judgement Intact, Mood/Affect Appropiate, Orientated x3, other (schizophrenia) Other Systems: Reviewed and Negative Patient History - Patient Medical History Hx Anemia: No Hx Asthma: No Hx Chronic Obstructive Pulmonary Disease (COPD): No Hx Cancer: No Hx Cardiac Disorders: No Hx Hypertension: No Hx Hypercholesterolemia: No Hx Pacemaker: No HX Cerebrovascular Accident: No Hx Seizures: Yes (Last seizure was November 15, 2018) Hx Dementia: No Hx Diabetes: No Hx Gastrointestinal Disorders: No Hx Liver Disease: No Hx Genitourinary Disorders: No Hx Sexually Transmitted Disorders: No Hx Renal Disease (ESRD): No Hx Thyroid Disease: No Hx Human Immunodeficiency Virus (HIV): No (last 06/30 negative) Hx Hepatitis C: No Hx Depression: Yes (Not on medication) Hx Suicide Attempt: Yes (2017 last) Hx Bipolar Disorder: No Hx Schizophrenia: Yes Other Medical History: no suicidal,no homicidal - Patient Surgical History Past Surgical History: No Hx Neurologic Surgery: No Hx Cataract Extraction: No Hx Cardiac Surgery: No Hx Lung Surgery: No Hx Breast Surgery: No Hx Breast Biopsy: No Hx Abdominal Surgery: No Hx Appendectomy: No Hx Cholecystectomy: No Hx Genitourinary Surgery: No Hx Section: No Hx Orthopedic Surgery: No Anesthesia Reaction: No - PPD History Previous Implant?: Yes Documented Results: Negative w/proof Implanted On Prior R Admission?: Yes Date: 06/04/17 Results: 0mm PPD to be Administered?: No - Smoking Cessation Smoking history: Current every day smoker Have you smoked in the past 12 months: Yes Aproximately how many cigarettes per day: 20 Cigars Per Day: 0 Hx Chewing Tobacco Use: No Initiated information on smoking cessation: Yes 'Breaking Loose' booklet given: 02/14/19 - Substance & Tx. History Hx Alcohol Use: Yes Hx Substance Use: Yes Substance Use Type: Alcohol, Cocaine, Marijuana Hx Substance Use Treatment: Yes ([facility] 11/17/18 to 11/19/18 not completed) - Substances abused Alcohol Substance route: Oral Frequency: Daily Amount used: 2 BOTTLES OF HENNESEY, 4 22 OZ. OF BEER Age of first use: 12 Date of last use: 02/13/19 Cocaine Substance route: Inhalation Frequency: Daily Amount used: 2 bags Age of first use: 25 Date of last use: 08/02/19 Marijuana/Hashish Substance route: Smoking Frequency: Daily Amount used: 2 blunts Age of first use: 11 Date of last use: 02/13/19 Heroin Substance route: Inhalation Frequency: 1-3 times last 30 days Amount used: 2 bags Age of first use: 10 Date of last use: 02/10/19 Family Disease History - Family Disease History Family Disease History: Heart Disease: Mother, Other: Father () Admission Physical Exam [facility] - Vital Signs Vital Signs: Vital Signs - 24 hr 02/14/19 02/14/19 09:22 09:39 Temperature 98.6 F 98.6 F Pulse Rate 54 L 54 L Respiratory 18 18 Rate Blood Pressure 124/82 124/82 - Physical General Appearance: Yes: Moderate Distress, Tremorous, Irritable, Sweating, Anxious HEENTM: Yes: Normal ENT Inspection, JOEY, Pharynx Normal Respiratory: Yes: Lungs Clear, Normal Breath Sounds, No Respiratory Distress Neck: Yes: Within Normal Limits, Supple, Trachea in good position Breast: Yes: Within Normal Limits Cardiology: Yes: S1, S2, Bradycardia Abdominal: Yes: Normal Bowel Sounds, Non Tender, Flat, Soft Genitourinary: Yes: Within Normal Limits Back: Yes: Muscle Spasm Musculoskeletal: Yes: full range of Motion, Back pain, Muscle Pain Extremities: Yes: Tremors Neurological: Yes: pot liner II-XII NML intact, Fully Oriented, Alert, Motor Strength 5/5 Integumentary: Yes: Dry, Other (burn both thumb,left index,roght index,left index finger) Lymphatic: Yes: Within Normal Limits - Diagnostic (1) Alcohol dependence with uncomplicated withdrawal Current Visit: No Status: Acute (2) Dehydration Current Visit: No Status: Acute (3) Weight loss Current Visit: No Status: Acute (4) Cannabis dependence Current Visit: No Status: Chronic (5) Cocaine dependence Current Visit: No Status: Chronic Qualifiers: Substance use status: uncomplicated Qualified Code(s): F14.20 - Cocaine dependence, uncomplicated (6) Nicotine dependence Current Visit: No Status: Chronic Qualifiers: Nicotine product type: cigarettes Substance use status: uncomplicated Qualified Code(s): F17.210 - Nicotine dependence, cigarettes, uncomplicated (7) Schizophrenia Current Visit: No Status: Chronic Qualifiers: Schizophrenia type: paranoid schizophrenia Qualified Code(s): F20.0 - Paranoid schizophrenia (8) Seizure Current Visit: No Status: Chronic (9) Burn, thumb, second degree Current Visit: Yes Status: Acute Cleared for Admission [facility] - Detox or Rehab [facility] Level of Care: Medically Managed Detox Regimen/Protocol: Librium Breathalyzer - Breathalyzer Breathalyzer: 0 Urine Drug Screen - Test Device Lot number: [id number] Expiration date: 06/12/20 - Control Is test valid?: Yes - Results Drug screen NEGATIVE: No Urine drug screen results: THC-Marijuana, MEE-Cocaine, MET-Methamphetamine Inpatient Rehab Admission - Rehab Decision to Admit Inpatient rehab admission?: No
[2019-02-14] MEDS ORDERED: IBUPROFEN 400 MG TABLET (FP) PO PRN (10:29)
[2019-02-14] MEDS ORDERED: ACETAMINOPHEN 325 MG TABLET (FP) PO PRN ×2 (10:29)
[2019-02-14] MEDS ORDERED: MENTHOL/PHENOL 1 EACH UD MM PRN (10:29)
[2019-02-14] MEDS ORDERED: MAGNESIUM HYDROX 2400MG/30ML ORAL SUSPENSION 30 ML CUP PO PRN (10:29)
[2019-02-14] MEDS ORDERED: hydrOXYzine PAMOATE 25 MG CAPSULE (FP) PO PRN (10:29)
[2019-02-14] MEDS ORDERED: chlordiazePOXIDE HCL 25 MG CAPSULE PO PRN (10:29)
[2019-02-14] MEDS ORDERED: MAGNESIUM CITRATE 300 ML BOTTLE PO PRN (10:29)
[2019-02-14] MEDS ORDERED: MAG HYDROX/AL HYDROX/SIMETH 30 ML UNIT-DOSE CUP PO PRN (10:29)
[2019-02-14] MEDS ORDERED: NICOTINE POLACRILEX 2 MG GUM BUC PRN (10:29)
[2019-02-14] MEDS ORDERED: BISMUTH SUBSALICYLATE 524 MG/30 ML UD PO PRN (10:29)
[2019-02-14] MEDS ORDERED: METHOCARBAMOL 500 MG TABLET PO PRN (10:29)
[2019-02-14] MEDS: NICOTINE 21 MG/24 HOURS TOPICAL PATCH TD SCH (11:34)
[2019-02-14] MEDS: BACITRACIN 0.9 GM PACKET TP SCH ×2 (11:34→22:08)
[2019-02-14] MEDS ORDERED: MELATONIN 5 MG TABLETS PO PRN (22:00)
[2019-02-14] MEDS: chlordiazePOXIDE HCL 10 MG CAPSULE PO SCH (22:08)
[2019-02-14] MEDS: THIAMINE HCL 100 MG TABLET (FP) PO SCH (22:08)
[2019-02-15] MEDS: chlordiazePOXIDE HCL 10 MG CAPSULE PO SCH (05:09)
[2019-02-15] MEDS: PRENATAL VITAMINS W/ FOLIC ACID TABLET (FP) PO SCH (10:41)
[2019-02-15] MEDS: chlordiazePOXIDE HCL 25 MG CAPSULE PO SCH ×3 (10:41→22:56)
[2019-02-15] MEDS: NICOTINE 21 MG/24 HOURS TOPICAL PATCH TD SCH (10:46)
[2019-02-15] MEDS: BACITRACIN 0.9 GM PACKET TP SCH ×2 (10:47→22:55)
[2019-02-15 10:51] LABS: HEMATOCRIT 42.7 % (35.4-49); MCH 28.8 pg (25.7-33.7); MCHC 32.9 g/dl (32.0-35.9); MEAN CELL VOLUME 87.6 fl (80-96); MEAN PLT VOLUME 11.8 fl (7.5-11.1); PLATELET COUNT 111 K/MM3 (134-434); RBC 4.87 M/mm3 (4.00-5.60); RDW 14.6 % (11.9-15.9); WHITE BLOOD COUNT 4.5 K/mm3 (4.0-10.0)
[2019-02-15 10:59] LABS: ALBUMIN 3.5 g/dl (3.4-5.0); BILIRUBIN,TOTAL 0.2 mg/dL (0.2-1); BLOOD UREA NITROGEN 14.8 mg/dL (7-18); CALCIUM 8.9 mg/dL (8.5-10.1); CREATININE 0.8 mg/dL (0.55-1.3); POTASSIUM 4.1 mmol/L (3.5-5.1); TOT PROT 6.7 g/dl (6.4-8.2)
--- NOTE | 2019-02-15 13:18 | PN ---
S CIWA - CIWA Score Nausea/Vomitin Muscle Tremors: 3 Anxiety: 3 Agitation: 1-Slight > Activity Paroxysmal Sweats: No Perspiration Orientation: 0-Oriented Tacttile Disturbances: 0-None Auditory Disturbances: 0-None Visual Disturbances: 1-Very Mild Sensitivity Headache: 2-Mild CIWA-Ar Total Score: 12 BHS Progress Note (SOAP) Subjective: Tremors, Anxious, Nausea, Headache. Objective: PATIENT A & O X 3, OBSERVED AMBULATING ON UNIT UNASSISTED. IN NO ACUTE DISTRESS. 02/15/19 13:19 Vital Signs Temperature 97.2 F L 02/15/19 09:39 Pulse Rate 53 L 02/15/19 09:39 Respiratory Rate 18 02/15/19 09:39 Blood Pressure 106/72 02/15/19 09:39 O2 Sat by Pulse Oximetry (%) Laboratory Tests 02/15/19 02/15/19 02/15/19 07:00 07:00 07:00 WBC 4.5 RBC 4.87 Hgb 14.0 Hct 42.7 MCV 87.6 MCH 28.8 MCHC 32.9 RDW 14.6 Plt Count 111 L MPV 11.8 H Sodium 141 Potassium 4.1 Chloride 108 H Carbon Dioxide 29 Anion Gap 4 L BUN 14.8 Creatinine 0.8 Est GFR (CKD-EPI)AfAm 135.08 Est GFR (CKD-EPI)NonAf 116.55 Random Glucose 82 Calcium 8.9 Total Bilirubin 0.2 AST 17 ALT 27 Alkaline Phosphatase 83 Total Protein 6.7 Albumin 3.5 RPR Titer Nonreactive HIV 1&2 Antibody Screen HIV P24 Antigen 02/15/19 07:00 WBC RBC Hgb Hct MCV MCH MCHC RDW Plt Count MPV Sodium Potassium Chloride Carbon Dioxide Anion Gap BUN Creatinine Est GFR (CKD-EPI)AfAm Est GFR (CKD-EPI)NonAf Random Glucose Calcium Total Bilirubin AST ALT Alkaline Phosphatase Total Protein Albumin RPR Titer HIV 1&2 Antibody Screen Cancelled HIV P24 Antigen Cancelled LABS NOTED. PATIENT HAS HAD LOW PLATELET LEVELS ON PREVIOUS ADMISSIONS. RESULTS OF HIV AB TEST PENDING. 02/15/19 13:21 Assessment: 02/15/19 13:19 WITHDRAWAL SYMPTOMS. THROMBOCYTOPENIA. 02/15/19 13:21 Plan: CONTINUE DETOX. INCREASE DAILY PO WATER INTAKE.
--- NOTE | 2019-02-15 18:22 | CONSULT ---
[facility] Psychiatric Consult - Data Date of interview: 02/15/19 Admission source: [facility] Identifying data: One of multiple admissions to [facility] for this 34 y/o male self-referred for detoxification (alcohol, heroin, cannabis, cocaine). Examined on . Patient is single, without children, domiciled ( lives with his mother), unemployed and supported on SSI benefits. Substance Abuse History: Discussed in this interview. Substance use disorder is confirmed by patient. Details in current [facility] report as follows : Smoking history : Current every day smoker. Have you smoked in the past 12 months: Yes. Aproximately how many cigarettes per day: 20. Cigars Per Day: 0. Hx Chewing Tobacco Use: No. Initiated information on smoking cessation: Yes. 'Breaking Loose' booklet given: 02/14/19. - Substance & Tx. History. Hx Alcohol Use: Yes. Hx Substance Use: Yes. Substance Use Type: Alcohol, Cocaine, Marijuana. Hx Substance Use Treatment: Yes ([facility] 11/17/18 to 11/19/18 not completed). - Substances abused. Alcohol. Substance route: Oral. Frequency: Daily. Amount used: 2 BOTTLES OF HENNESEY, 4 22 OZ. OF BEER. Age of first use: 12. Date of last use: 02/13/19. Cocaine. Substance route: Inhalation. Frequency: Daily. Amount used: 2 bags. Age of first use: 25. Date of last use : 02/12/19. Marijuana/Hashish. Substance route: Smoking. Frequency: Daily. Amount used: 2 blunts. Age of first use: 11. Date of last use: . Heroin. Substance route: Inhalation. Frequency: 1-3 times last 30 days. Amount used: 2 bags. Age of first use: 10. Date of last use: 02/10/19 Medical History: Remarkable for a history of withdrawal-related seizures. Psychiatric History: Diagnosed with Paranoid Schizophrenia (onset at age 18). Patient presents with a history of multiple psychiatric hospitalizations ([facility], [facility], [facility], [facility]). Mr Reardon is still supervised by the [facility] (maintained on haldol decanoate 200 mg IM monthly; patient reports that he received his injection, two weeks ago). Alexys reports a history of multiple suicide attempts (showering with hot water, acting on the delusion that he will disappear to save the world / overdosing with medications / wrist-cutting). Records indicate a pattern of TWO suicide attempts within a 2- month interval (September - October 2018). Physical/Sexual Abuse/Trauma History: Patient denies history of abuse. Additional Comment: Urine drug screen results: THC-Marijuana, MEE-Cocaine, MET- Methamphetamine. Noted. Mental Status Exam - Mental Status Exam Alert and Oriented to: Time, Place, Person Cognitive Function: Grossly Intact Patient Appearance: Disheveled Mood: Withdrawn Affect: Mood Congruent, Blunted Patient Behavior: Fatigued, Cooperative Speech Pattern: Clear Voice Loudness: Normal Thought Process: Goal Oriented Hallucinations: Denies Suicidal Ideation: Denies Homicidal Ideation: Denies Insight/Judgement: Poor Sleep: Well Appetite: Good Muscle strength/Tone: Normal Gait/Station: Normal Psychiatric Findings - Problem List ([place] 1, 2,3) (1) Alcohol dependence with uncomplicated withdrawal Current Visit: Yes Status: Acute (2) Cannabis dependence Current Visit: Yes Status: Chronic (3) Cocaine dependence Current Visit: Yes Status: Chronic Qualifiers: Substance use status: uncomplicated Qualified Code(s): F14.20 - Cocaine dependence, uncomplicated (4) Nicotine dependence Current Visit: Yes Status: Chronic Qualifiers: Nicotine product type: cigarettes Substance use status: uncomplicated Qualified Code(s): F17.210 - Nicotine dependence, cigarettes, uncomplicated (5) Schizophrenia Current Visit: Yes Status: Chronic Qualifiers: Schizophrenia type: paranoid schizophrenia Qualified Code(s): F20.0 - Paranoid schizophrenia (6) Substance induced mood disorder Current Visit: Yes Status: Chronic (7) Insomnia Current Visit: Yes Status: Chronic - Initial Treatment Plan Initial Treatment Plan: Psychoeducation. Sleep hygiene. Detoxification in progress. Haldol (oral) is temporarily discontinued in view of bradycardia and absence of recent EKG (patient is already covered with decanoate 200 mg/IM dispensed two weeks ago). Haloperidol level : pending. EKG is requested. Will follow. Support. AA meetings. Will contact the [facility] team for collateral information. Resumed : cogentin 1 mg po bid + depakote 250 mg po tid. Side effects/benefits of these drugs are discussed with the patient. Made aware of risk of EPS, dystonias, dyskinesias, neuroleptic malignant syndrome, anticholinergic issues, liver dysfunction and cardiovascular adverse events. Mr Reardon is agreeable with this plan of care. Observation.
[2019-02-15] MEDS ORDERED: HALOPERIDOL 5 MG TABLET (FP) PO SCH (22:00)
[2019-02-15] MEDS: BENZTROPINE MESYLATE 1 MG TABLET (FP) PO SCH (22:55)
[2019-02-15] MEDS: THIAMINE HCL 100 MG TABLET (FP) PO SCH (22:56)
[2019-02-15] MEDS: DIVALPROEX SODIUM 250 MG TABLET E.C. PO SCH (22:56)
[2019-02-16] MEDS: chlordiazePOXIDE HCL 25 MG CAPSULE PO SCH ×4 (05:43→22:25)
[2019-02-16] MEDS: DIVALPROEX SODIUM 250 MG TABLET E.C. PO SCH ×3 (05:43→22:24)
[2019-02-16] MEDS: PRENATAL VITAMINS W/ FOLIC ACID TABLET (FP) PO SCH (10:06)
[2019-02-16] MEDS: BENZTROPINE MESYLATE 1 MG TABLET (FP) PO SCH ×2 (10:08→22:24)
[2019-02-16] MEDS: BACITRACIN 0.9 GM PACKET TP SCH ×2 (10:10→22:25)
[2019-02-16] MEDS: NICOTINE 21 MG/24 HOURS TOPICAL PATCH TD SCH (11:22)
--- NOTE | 2019-02-16 11:27 | PN ---
[facility] CIWA - CIWA Score Nausea/Vomitin-No Nausea/No Vomiting Muscle Tremors: 3 Anxiety: 2 Agitation: 2 Paroxysmal Sweats: 1-Minimal Palms Moist Orientation: 0-Oriented Tacttile Disturbances: 0-None Auditory Disturbances: 0-None Visual Disturbances: 0-None Headache: 0-None Present CIWA-Ar Total Score: 8 S Progress Note (SOAP) Subjective: 34 years old male admitted on 02/14/19 for acute alcohol withdrawal sx management doing well with librium detox regimen less tremor Objective: 02/16/19 11:29 Vital Signs Temperature 97.4 F L 02/16/19 09:18 Pulse Rate 76 02/16/19 09:18 Respiratory Rate 18 02/16/19 09:18 Blood Pressure 116/69 02/16/19 09:18 O2 Sat by Pulse Oximetry (%) Laboratory Last Values WBC 4.5 K/mm3 (4.0-10.0) 02/15/19 07:00 RBC 4.87 M/mm3 (4.00-5.60) 02/15/19 07:00 Hgb 14.0 GM/dL (11.7-16.9) 02/15/19 07:00 Hct 42.7 % (35.4-49) 02/15/19 07:00 MCV 87.6 fl (80-96) 02/15/19 07:00 MCH 28.8 pg (25.7-33.7) 02/15/19 07:00 MCHC 32.9 g/dl (32.0-35.9) 02/15/19 07:00 RDW 14.6 % (11.9-15.9) 02/15/19 07:00 Plt Count 111 K/MM3 (134-434) L 02/15/19 07:00 MPV 11.8 fl (7.5-11.1) H 02/15/19 07:00 Sodium 141 mmol/L (136-145) 02/15/19 07:00 Potassium 4.1 mmol/L (3.5-5.1) 02/15/19 07:00 Chloride 108 mmol/L (98-107) H 02/15/19 07:00 Carbon Dioxide 29 mmol/L (21-32) 02/15/19 07:00 Anion Gap 4 MMOL/L (8-16) L 02/15/19 07:00 BUN 14.8 mg/dL (7-18) 02/15/19 07:00 Creatinine 0.8 mg/dL (0.55-1.3) 02/15/19 07:00 Est GFR (CKD-EPI)AfAm 135.08 02/15/19 07:00 Est GFR (CKD-EPI)NonAf 116.55 02/15/19 07:00 Random Glucose 82 mg/dL (74-106) 02/15/19 07:00 Calcium 8.9 mg/dL (8.5-10.1) 02/15/19 07:00 Total Bilirubin 0.2 mg/dL (0.2-1) 02/15/19 07:00 AST 17 U/L (15-37) 02/15/19 07:00 ALT 27 U/L (13-61) 02/15/19 07:00 Alkaline Phosphatase 83 U/L (45-117) 02/15/19 07:00 Total Protein 6.7 g/dl (6.4-8.2) 02/15/19 07:00 Albumin 3.5 g/dl (3.4-5.0) 02/15/19 07:00 RPR Titer Nonreactive (NONREACTIVE) 02/15/19 07:00 HIV 1&2 Ag/Ab, 4th Gen Non reactive (Non Reactive) 02/15/19 10:00 HIV 1&2 Antibody Screen Cancelled 02/15/19 07:00 HIV P24 Antigen Cancelled 02/15/19 07:00 lab noted Assessment: 02/16/19 11:29 alcohol withdrawal sx Plan: continue alcohol detox
--- NOTE | 2019-02-16 15:50 | EKG ---
Test Reason : Blood Pressure : / mmHG Vent. Rate : 068 BPM Atrial Rate : 068 BPM P-R Int : 156 ms QRS Dur : 086 ms QT Int : 380 ms P-R-T Axes : 052 078 059 degrees QTc Int : 404 ms NORMAL SINUS RHYTHM WITH SINUS ARRHYTHMIA EARLY REPOLARIZATION NORMAL ECG WHEN COMPARED WITH ECG OF 02-JUN-2017 20:00, T WAVE AMPLITUDE HAS INCREASED IN ANTERIOR LEADS Confirmed by MD NICHELLE, FRANTZ ([id number]) on 02/16/2019 3:50:22 PM Referred By: Confirmed By:FRANTZ STEWARD MD
[2019-02-16 21:28] LABS: EPI CELLS 3.6 /HPF (0-5/HPF); HYALINE CASTS 22 /lpf (0-8); PH,URINE 7.5 (5.0-8.0); URINE APPEARANCE CLEAR; URINE BACTERIA 1.7 /hpf (NEGATIVE); URINE BILIRUBIN NEGATIVE (NEGATIVE); URINE COLOR YELLOW; URINE GLUCOSE (UA) NEGATIVE (NEGATIVE); URINE KETONE NEGATIVE (NEGATIVE); URINE LEUK ESTERASE 1+ (NEGATIVE); URINE NITRITE NEGATIVE (NEGATIVE); URINE PROTEIN NEGATIVE (NEGATIVE); URINE RBC 0 /hpf (0-4); URINE WBC 8 /hpf (0-5)
[2019-02-16] MEDS: THIAMINE HCL 100 MG TABLET (FP) PO SCH (22:24)
[2019-02-17] MEDS ORDERED: chlordiazePOXIDE HCL 10 MG CAPSULE PO PRN
[2019-02-17] MEDS: DIVALPROEX SODIUM 250 MG TABLET E.C. PO SCH (06:39)
[2019-02-17] MEDS: chlordiazePOXIDE HCL 10 MG CAPSULE PO SCH ×2 (06:39→10:20)
[2019-02-17 09:41] VITALS: BP 109/69; PULSE 81; TEMP 98.5
[2019-02-17] MEDS: BENZTROPINE MESYLATE 1 MG TABLET (FP) PO SCH (10:20)
[2019-02-17] MEDS: BACITRACIN 0.9 GM PACKET TP SCH (10:20)
[2019-02-17] MEDS: NICOTINE 21 MG/24 HOURS TOPICAL PATCH TD SCH (10:20)
[2019-02-17] MEDS: PRENATAL VITAMINS W/ FOLIC ACID TABLET (FP) PO SCH (10:20)
--- NOTE | 2019-02-17 15:29 | DS ---
[facility] Detox Discharge Summary Admission Date: 02/14/19 Discharge Date: 02/17/19 - History Present History: Alcohol Dependence Additional Comments: 34 years old male admitted on 02/14/19 for acute alcohol withdrawal sx management doing well with librium detox regimen no complication through out the detox stay alert oriented x 3 denies hallucinations denies dizziness no shortness of breathe - Physical Exam Results Vital Signs: Vital Signs Temperature 98.5 F 02/17/19 09:41 Pulse Rate 81 02/17/19 09:41 Respiratory Rate 18 02/17/19 09:41 Blood Pressure 109/69 02/17/19 09:41 O2 Sat by Pulse Oximetry (%) Pertinent Admission Physical Exam Findings: alcohol withdrawal sx Laboratory Last Values WBC 4.5 K/mm3 (4.0-10.0) 02/15/19 07:00 RBC 4.87 M/mm3 (4.00-5.60) 02/15/19 07:00 Hgb 14.0 GM/dL (11.7-16.9) 02/15/19 07:00 Hct 42.7 % (35.4-49) 02/15/19 07:00 MCV 87.6 fl (80-96) 02/15/19 07:00 MCH 28.8 pg (25.7-33.7) 02/15/19 07:00 MCHC 32.9 g/dl (32.0-35.9) 02/15/19 07:00 RDW 14.6 % (11.9-15.9) 02/15/19 07:00 Plt Count 111 K/MM3 (134-434) L 02/15/19 07:00 MPV 11.8 fl (7.5-11.1) H 02/15/19 07:00 Sodium 141 mmol/L (136-145) 02/15/19 07:00 Potassium 4.1 mmol/L (3.5-5.1) 02/15/19 07:00 Chloride 108 mmol/L (98-107) H 02/15/19 07:00 Carbon Dioxide 29 mmol/L (21-32) 02/15/19 07:00 Anion Gap 4 MMOL/L (8-16) L 02/15/19 07:00 BUN 14.8 mg/dL (7-18) 02/15/19 07:00 Creatinine 0.8 mg/dL (0.55-1.3) 02/15/19 07:00 Est GFR (CKD-EPI)AfAm 135.08 02/15/19 07:00 Est GFR (CKD-EPI)NonAf 116.55 02/15/19 07:00 Random Glucose 82 mg/dL (74-106) 02/15/19 07:00 Calcium 8.9 mg/dL (8.5-10.1) 02/15/19 07:00 Total Bilirubin 0.2 mg/dL (0.2-1) 02/15/19 07:00 AST 17 U/L (15-37) 02/15/19 07:00 ALT 27 U/L (13-61) 02/15/19 07:00 Alkaline Phosphatase 83 U/L (45-117) 02/15/19 07:00 Total Protein 6.7 g/dl (6.4-8.2) 02/15/19 07:00 Albumin 3.5 g/dl (3.4-5.0) 02/15/19 07:00 Urine Color Yellow 02/16/19 17:50 Urine Appearance Clear 02/16/19 17:50 Urine pH 7.5 (5.0-8.0) D 02/16/19 17:50 Ur Specific Raymond 1.030 (1.010-1.035) 02/16/19 17:50 Urine Protein Negative (NEGATIVE) 02/16/19 17:50 Urine Glucose (UA) Negative (NEGATIVE) 02/16/19 17:50 Urine Ketones Negative (NEGATIVE) 02/16/19 17:50 Urine Blood Negative (NEGATIVE) 02/16/19 17:50 Urine Nitrite Negative (NEGATIVE) 02/16/19 17:50 Urine Bilirubin Negative (NEGATIVE) 02/16/19 17:50 Urine Urobilinogen 1.0 mg/dL (0.2-1.0) 02/16/19 17:50 Ur Leukocyte Esterase 1+ (NEGATIVE) H 02/16/19 17:50 Urine WBC (Auto) 8 /hpf (0-5) 02/16/19 17:50 Urine RBC (Auto) 0 /hpf (0-4) 02/16/19 17:50 Urine Casts (Auto) 22 /lpf (0-8) 02/16/19 17:50 U Epithel Cells (Auto) 3.6 /HPF (0-5/HPF) 02/16/19 17:50 Urine Bacteria (Auto) 1.7 /hpf (NEGATIVE) 02/16/19 17:50 RPR Titer Nonreactive (NONREACTIVE) 02/15/19 07:00 HIV 1&2 Ag/Ab, 4th Gen Non reactive (Non Reactive) 02/15/19 10:00 HIV 1&2 Antibody Screen Cancelled 02/15/19 07:00 HIV P24 Antigen Cancelled 02/15/19 07:00 lab noted - Treatment Hospital Course: Detox Protocol Followed, Detoxed Safely, Responded well, Discharged Condition Good, Rehab Referral Accepted Patient has Accepted [facility] Referral [facility] - Medication Discharge Medications: Ambulatory Orders Benztropine Mesylate [Cogentin -] 1 mg PO BID 02/14/19 Diphenhydramine HCl [Benadryl Capsule -] 25 mg PO HS 02/14/19 Divalproex [Depakote -] 250 mg PO TID 02/14/19 Haloperidol Decanoate [Haldol Decanoate (Long-Acting) -] 200 mg IM MONTHLY 02/14 Haloperidol [Haldol -] 5 mg PO BID 02/14/19 - Diagnosis (1) Alcohol dependence with uncomplicated withdrawal Status: Acute (2) Weight loss Status: Acute (3) GERD (gastroesophageal reflux disease) Status: Chronic Qualifiers: Esophagitis presence: without esophagitis Qualified Code(s): K21.9 - Gastro -esophageal reflux disease without esophagitis (4) Nicotine dependence Status: Acute Qualifiers: Nicotine product type: cigarettes Substance use status: in withdrawal Qualified Code(s): F17.213 - Nicotine dependence, cigarettes, with withdrawal (5) Substance induced mood disorder Status: Suspected - AMA Did Patient Leave Against Medical Advice: No
[2019-02-18] MEDS ORDERED: chlordiazePOXIDE HCL 10 MG CAPSULE PO SCH (05:00)
[2019-02-19] MEDS ORDERED: chlordiazePOXIDE HCL 10 MG CAPSULE PO ONE (05:00)
== END 2019-02-17 12:17 | disposition home or self-care (01) | DRG 774 ==
LOC: YASAS 08:57 → Y3N 10:27
PROVIDERS: ADMIT Surgery; ATTEND Allergy & Immunology
PROC: HZ2ZZZZ Detoxification Services for Substance Abuse Treatment (ICD-10-PCS; principal; 2019-02-14)
DX: F10.230 Alcohol dependence with withdrawal, uncomplicated (principal); F14.20 Cocaine dependence, uncomplicated; F12.20 Cannabis dependence, uncomplicated; F17.213 Nicotine dependence, cigarettes, with withdrawal; F20.0 Paranoid schizophrenia; F19.24 Other psychoactive substance dependence with psychoactive substance-induced mood disorder; D69.6 Thrombocytopenia, unspecified; E86.0 Dehydration; K21.9 Gastro-esophageal reflux disease without esophagitis; G47.00 Insomnia, unspecified; R63.4 Abnormal weight loss; Z68.21 Body mass index [BMI] 21.0-21.9, adult; T23.242A Burn of second degree of multiple left fingers (nail), including thumb, initial encounter; T23.241A Burn of second degree of multiple right fingers (nail), including thumb, initial encounter; X08.8XXA Exposure to other specified smoke, fire and flames, initial encounter; Y93.89 Activity, other specified; Y92.89 Other specified places as the place of occurrence of the external cause; Z86.69 Personal history of other diseases of the nervous system and sense organs; Z91.5 Personal history of self-harm
CPT/HCPCS: 36415; 80053; 80173; 81003; 85027; 86593; 87389; 93005; 93010

== ENCOUNTER 2019-02-22 08:49 | Inpatient (IN) | payer OTHER ==
[2019-02-22 10:22] VITALS: BMI 20.7
--- NOTE | 2019-02-22 10:52 | HP ---
[facility] Rehab Assess/Revision - Admission History Admitted to Rehab from: [facility] Date of Admission to Rehab: 02/22/19 - Vital signs Vital Signs: Vital Signs Period Temp Pulse Resp BP Sys/[place] Pulse Ox Last 24 Hr 96.7 F 61 16 116/73 - Findings Detox History & Physical reviewed: Yes Concur with findings: Yes Comments/Additional Findings: this 34 years old an newman alcohol,cocaine, canabis dependence,. schizophrenia,completed detox 02/14/17 to 02/17/19,. comr to [facility] level of care rehab Inpatient Rehab Admission - Rehab Decision to Admit Inpatient rehab admission?: Yes - Initial Determination Are CD services needed?: Yes Free of communicable disease: Yes Not in need of hospitalization: Yes - Rehab Admission Criteria Previous failed treatment: Yes Poor recovery environment: Yes Comorbidities: Yes Lacks judgement: No Patient is meeting Inpatient Rehab admission criteria:: Yes
[2019-02-22] MEDS ORDERED: LOPERAMIDE HCL 2 MG CAPSULE PO PRN (10:53)
[2019-02-22] MEDS ORDERED: P-EPHED 60MG/TRIPROLIDI 2.5MG TABLET PO PRN (10:53)
[2019-02-22] MEDS ORDERED: ACETAMINOPHEN 325 MG TABLET (FP) PO PRN (10:53)
[2019-02-22] MEDS ORDERED: MAG HYDROX/AL HYDROX/SIMETH 30 ML UNIT-DOSE CUP PO PRN (10:53)
[2019-02-22] MEDS ORDERED: MAGNESIUM CITRATE 300 ML BOTTLE PO PRN (10:53)
[2019-02-22] MEDS ORDERED: guaiFENesin 200 MG/10 ML 10 ML UNIT-DOSE CUPS PO PRN (10:53)
[2019-02-22] MEDS ORDERED: MENTHOL/PHENOL 1 EACH UD MM PRN (10:53)
[2019-02-22] MEDS ORDERED: MAGNESIUM HYDROX 2400MG/30ML ORAL SUSPENSION 30 ML CUP PO PRN (10:53)
[2019-02-22] MEDS ORDERED: hydrOXYzine PAMOATE 25 MG CAPSULE (FP) PO PRN (10:53)
[2019-02-22] MEDS ORDERED: IBUPROFEN 400 MG TABLET (FP) PO PRN (10:53)
[2019-02-22] MEDS: BACITRACIN 15 GM TUBE TOPICAL OINTMENT TP SCH ×2 (15:35→22:14)
[2019-02-22] MEDS: DIVALPROEX SODIUM 250 MG TABLET E.C. PO SCH ×2 (15:36→22:14)
[2019-02-22] MEDS: NICOTINE 21 MG/24 HOURS TOPICAL PATCH TD SCH (15:36)
[2019-02-22] MEDS ORDERED: MELATONIN 5 MG TABLETS PO PRN (22:00)
[2019-02-22] MEDS: THIAMINE HCL 100 MG TABLET (FP) PO SCH (22:14)
[2019-02-22] MEDS: BENZTROPINE MESYLATE 1 MG TABLET (FP) PO SCH (22:14)
[2019-02-23] MEDS: DIVALPROEX SODIUM 250 MG TABLET E.C. PO SCH ×3 (06:08→22:15)
--- NOTE | 2019-02-23 08:12 | CONSULT ---
[facility] Psychiatric Consult - Data Date of interview: 02/23/19 Admission source: [facility]N Identifying data: Mr Reardon is a 34 years old single male, unemployed receiving SSI, domiciled seeking rehab treatment fot alcohol, opioid , cocaine and cannabis Substance Abuse History: Reports history of alcohol, heroin, cocaine and marijuana use. Refer to addiction counselor's summary for further information Medical History: Significant for a history of withdrawal-related seizures. Smokes cigarettes 1 ppd Psychiatric History: Patient reports that his first psychiatric contact was at age 18 when he was admitted to [facility] for auditory hallucinaion and paranoid delusions. Reports that he was diagnosed with Paranoid Schizophrenia and started on Seroquel. Reports multiple previous psychiatric hospitalizations at various institutions including [facility], [facility], [facility], [facility] and most recently in 2018 at [facility]. Patient receives outpatient psychiatric services via the [facility] team and he is prescribed Haldol Decanoate 200 mg IM monthly([facility], last injection on 02/12/19), Haldol 5 mg/bid, Cogentin 1 mg/bid, Depakote 250 mg/bid and Benadryl 50 mhg/hs. He reports multiple prvious suicide attempts (showering with hot water, acting on the delusion that he will disappear to save the world / overdosing with medications/wrist-cutting). At present, denies experiencing psychotic symptoms, S/H ideations. However, reports feeling mildly depressed and sleeping poorly Physical/Sexual Abuse/Trauma History: Denies history of verbal, physical or sexual abuse as well as DV relationship Additional Comment: Reports history of 7-8 previous arrests on charges of possession of narcotic, gun. Denies being on parole/probation at present Mental Status Exam - Mental Status Exam Alert and Oriented to: Time, Place, Person Cognitive Function: Fair Patient Appearance: Well Groomed (Tattoes) Mood: Depressed (mildly) Affect: Appropriate Patient Behavior: Cooperative Speech Pattern: Clear Voice Loudness: Normal Thought Process: Intact, Goal Oriented Thought Disorder: Not Present Hallucinations: Denies Suicidal Ideation: Denies Homicidal Ideation: Denies Insight/Judgement: Fair Sleep: Poorly Appetite: Good Muscle strength/Tone: Normal Gait/Station: Normal Psychiatric Findings - Problem List ([place] 1, 2,3) (1) Schizophrenia Current Visit: No Status: Chronic Qualifiers: Schizophrenia type: paranoid schizophrenia Qualified Code(s): F20.0 - Paranoid schizophrenia (2) Substance induced mood disorder Current Visit: Yes Status: Acute (3) Substance-induced sleep disorder Current Visit: Yes Status: Acute (4) Alcohol dependence Current Visit: Yes Status: Acute (5) Cocaine dependence Current Visit: No Status: Acute Qualifiers: Substance use status: uncomplicated Qualified Code(s): F14.20 - Cocaine dependence, uncomplicated (6) Cannabis dependence Current Visit: No Status: Acute (7) Opioid abuse Current Visit: Yes Status: Acute (8) Nicotine dependence Current Visit: No Status: Chronic Qualifiers: Nicotine product type: cigarettes Substance use status: in withdrawal Qualified Code(s): F17.213 - Nicotine dependence, cigarettes, with withdrawal (9) Seizure Current Visit: No Status: Resolved - Initial Treatment Plan Initial Treatment Plan: 1) Continue Haldol 5 mg po BID, Cogentin 1 mg po BID and Depakote 250 mg po BID. 2) Haldol Decanoate 200 mg IM on 03/12/19. 3) Continue inpatient rehabilitation
[2019-02-23] MEDS: BENZTROPINE MESYLATE 1 MG TABLET (FP) PO SCH ×2 (10:27→22:15)
[2019-02-23] MEDS: PRENATAL VITAMINS W/ FOLIC ACID TABLET (FP) PO SCH (10:27)
[2019-02-23] MEDS: NICOTINE 21 MG/24 HOURS TOPICAL PATCH TD SCH (10:27)
[2019-02-23] MEDS: BACITRACIN 15 GM TUBE TOPICAL OINTMENT TP SCH ×2 (10:28→22:15)
[2019-02-23] MEDS ORDERED: HALOPERIDOL 5 MG TABLET (FP) PO PRN (12:15)
[2019-02-23] MEDS: HALOPERIDOL 5 MG TABLET (FP) PO SCH ×2 (12:25→22:15)
[2019-02-23] MEDS: THIAMINE HCL 100 MG TABLET (FP) PO SCH (22:16)
[2019-02-24] MEDS: DIVALPROEX SODIUM 250 MG TABLET E.C. PO SCH ×3 (06:41→22:03)
[2019-02-24] MEDS: PRENATAL VITAMINS W/ FOLIC ACID TABLET (FP) PO SCH (09:16)
[2019-02-24] MEDS: BENZTROPINE MESYLATE 1 MG TABLET (FP) PO SCH ×2 (09:16→22:00)
[2019-02-24] MEDS: HALOPERIDOL 5 MG TABLET (FP) PO SCH ×2 (09:16→21:27)
[2019-02-24] MEDS: BACITRACIN 15 GM TUBE TOPICAL OINTMENT TP SCH ×2 (09:17→21:27)
[2019-02-24] MEDS: NICOTINE 21 MG/24 HOURS TOPICAL PATCH TD SCH (09:17)
[2019-02-24] MEDS: NICOTINE POLACRILEX 2 MG GUM BUC PRN (13:58)
[2019-02-24] MEDS: THIAMINE HCL 100 MG TABLET (FP) PO SCH (21:27)
[2019-02-25] MEDS ORDERED: PT OWN MED DRAWER 7, Y5N ONE (04:07)
[2019-02-25 06:41] VITALS: BP 117/65; PULSE 71; TEMP 98.1
[2019-02-25] MEDS: DIVALPROEX SODIUM 250 MG TABLET E.C. PO SCH ×3 (06:54→22:02)
[2019-02-25] MEDS: BENZTROPINE MESYLATE 1 MG TABLET (FP) PO SCH ×2 (10:06→22:02)
[2019-02-25] MEDS: BACITRACIN 15 GM TUBE TOPICAL OINTMENT TP SCH ×2 (10:06→22:02)
[2019-02-25] MEDS: HALOPERIDOL 5 MG TABLET (FP) PO SCH ×2 (10:06→22:02)
[2019-02-25] MEDS: NICOTINE 21 MG/24 HOURS TOPICAL PATCH TD SCH (10:07)
[2019-02-25] MEDS: PRENATAL VITAMINS W/ FOLIC ACID TABLET (FP) PO SCH (12:07)
[2019-02-25] MEDS: NICOTINE POLACRILEX 2 MG GUM BUC PRN (14:24)
[2019-02-25] MEDS: THIAMINE HCL 100 MG TABLET (FP) PO SCH (22:02)
[2019-02-26] MEDS: DIVALPROEX SODIUM 250 MG TABLET E.C. PO SCH (07:22)
[2019-02-26] MEDS: NICOTINE 21 MG/24 HOURS TOPICAL PATCH TD SCH (10:21)
[2019-02-26] MEDS: HALOPERIDOL 5 MG TABLET (FP) PO SCH (10:21)
[2019-02-26] MEDS: BENZTROPINE MESYLATE 1 MG TABLET (FP) PO SCH (10:21)
[2019-02-26] MEDS: BACITRACIN 15 GM TUBE TOPICAL OINTMENT TP SCH (10:22)
[2019-02-26] MEDS: PRENATAL VITAMINS W/ FOLIC ACID TABLET (FP) PO SCH (10:22)
--- NOTE | 2019-02-26 14:07 | PN ---
[facility] Progress Note Note: Notified by staff patient requested to sign out AMA because he wants to smoke and see his family. Patient encouraged to complete rehab by counselor and nursing staff but he refused to stay in treatment. Patient left prior to evaluation by provider. Vital Signs Temperature 98.1 F 02/25/19 06:39 Pulse Rate 71 02/25/19 06:39 Respiratory Rate 18 02/26/19 03:30 Blood Pressure 117/65 02/25/19 06:39 O2 Sat by Pulse Oximetry (%)
== END 2019-02-26 12:40 | disposition left against medical advice (07) | DRG 770 ==
LOC: YASAS 08:49 → Y3W 10:58
PROVIDERS: ADMIT Neuromusculoskeletal Medicine & OMM; ATTEND Neuromusculoskeletal Medicine & OMM
PROC: HZ42ZZZ Group Counseling for Substance Abuse Treatment, Cognitive-Behavioral (ICD-10-PCS; principal; 2019-02-22)
DX: F10.20 Alcohol dependence, uncomplicated (principal); F14.20 Cocaine dependence, uncomplicated; F11.10 Opioid abuse, uncomplicated; F12.20 Cannabis dependence, uncomplicated; F17.213 Nicotine dependence, cigarettes, with withdrawal; F20.0 Paranoid schizophrenia; F19.24 Other psychoactive substance dependence with psychoactive substance-induced mood disorder; F19.282 Other psychoactive substance dependence with psychoactive substance-induced sleep disorder; Z86.69 Personal history of other diseases of the nervous system and sense organs